=== PATIENT | male | born 1940 | race Caucasian/White ===

== ENCOUNTER 2017-11-15 08:14 | Inpatient (IN) | payer MEDICARE, OTHER ==
[2017-11-15] MEDS ORDERED: Sodium Chloride 0.9% 1,000 ML IV ONE (08:31)
[2017-11-15] MEDS ORDERED: Sodium Chloride 0.9% 2.5 ML Syringe FLUSH PRN ×3 (08:31→14:11)
[2017-11-15] MEDS ORDERED: Sodium Chloride 0.9% 10 ML Syringe FLUSH PRN ×2 (08:31→14:11)
--- NOTE | 2017-11-15 08:31 | EDM.PDOC ---
ED HPI GENERAL MEDICAL PROBLEM - General Stated Complaint: AMBULANCE Time Seen by Provider: 11/15/17 08:20 Source of Information: Reports: Patient History Limitations: Reports: No Limitations - History of Present Illness INITIAL COMMENTS - FREE TEXT/NARRATIVE: HISTORY AND PHYSICAL: History of present illness: [77-year-old male presenting to emergency department by EMS for shortness of breath with past medical history of hypertension, GI bleed, PE on Coumadin, and type 2 diabetes. Patient states that he began having some shortness of breath approximately 7-10 days ago. He denies any associated chest pain, palpitations, diaphoresis, or nausea and vomiting. He does admit to some lightheadedness when he stands up as well as generalized fatigue. Denies any recent fevers, chills, sore throat, or recent sick contacts. This morning while having a BM he became very lightheaded and short of breath. States that he "almost passed out" but did not lose consciousness. He was able to sit down on the floor and secondary to this called EMS for further evaluation. He does note dark tarry stools starting today. Patient states that he does have a history of GI bleed. He has had upper and lower endoscopy performed here by Dr. Queen some years ago. States that no significant findings were found on this evaluation. Also states that he had a upper and lower endoscopy done in [place] some years ago as well which only revealed a small polyp which was extracted. In addition to his shortness of breath and lightheadedness he is been having some crampy bloating abdominal pain. This is intermittent and mild. Patient does have a history of PE 2 and is on Coumadin. He goes to the [facility] for his primary care and to check his INRs. He denies any recent changes in his diet as well as changes in his INR. He denies any current leg pain or extended time sitting or recent travel. He currently denies any chest pain, palpitations, syncopal episodes, or focal neurologic deficits. EMS reported BP systolic in the high 80's and was given 1 L NS in route to ED. He denies any medical allergies. AIMS65 score: 3 9% risk ] Review of systems: As per history of present illness and below otherwise all systems reviewed and negative. Past medical history: As per history of present illness and as reviewed below otherwise noncontributory. Surgical history: As per history of present illness and as reviewed below otherwise noncontributory. Social history: No reported history of drug or alcohol abuse. Family history: As per history of present illness and as reviewed below otherwise noncontributory. Physical exam: HEENT: Atraumatic, normocephalic, pupils reactive, negative for conjunctival pallor or scleral icterus, mucous membranes moist, throat clear, neck supple, nontender, trachea midline. Lungs: Clear to auscultation, breath sounds equal bilaterally, chest nontender. Heart: S1S2, regular, negative for clicks, rubs, or JVD. Abdomen: Soft, nondistended, nontender. Negative for masses or hepatosplenomegaly. Negative for costovertebral tenderness. Pelvis: Stable nontender. Genitourinary: Dark stool seen at anus. Positive occult blood. Rectal: Deferred. Extremities: Atraumatic, negative for cords or calf pain. Neurovascular unremarkable. Neuro: Awake, alert, oriented. Cranial nerves II through XII unremarkable. Cerebellum unremarkable. Motor and sensory unremarkable throughout. Exam nonfocal. Diagnostics: CBC-Hgb 10.8 CMP-BUN 67 Cr 1.5 Trop-neg D-dimer-neg INR-3.35 EKG-sinus tach 101, RBBB and LAFB no acute ST changes CXR-neg UA-pending Hemoccult: positive for blood [id number] CT abd/pelvis: Cholelithiasis, mild diverticulosis Therapeutics: [1 L IV NS x1, 1 L IV LR x1, 80mg Pantoprazole IV x1] Impression: [Upper GI bleed, shortness of breath, h-pylori positive, anemia] Plan: [CBC showed mild anemia 10.8 however patient most likely was mildly dehydrated which resulted in his acute kidney injury so anemia may be more pronounced than actually labs show. BUN was elevated at 67 with creatinine of 1.5. Hemoccult was positive and there was dark stool noted. AIMS65 score was 3 indicating 9% risk. Patient was positive for helico bactor pylori indicating more evidence for upper GI bleed. We did get a CT of the abdomen and pelvis with contrast that only showed cholelithiasis without cholecystitis as well as mild diverticulosis without evidence of diverticulitis. All information was explained to patient as well as his and they agreed to admission for his suspected upper GI bleed. Hospitalist was called and accepted patient at 11:15.] - Related Data Allergies Allergy/AdvReac Type Severity Reaction Status Date / Time No Known Allergies Allergy Verified 11/15/17 08:21 Home Meds: Home Meds Insulin Glargine,Hum.Rec.Anlog [Lantus Solostar] 16 unit SQ BEDTIME 12/12/14 [ History] Insulin Glargine,Hum.Rec.Anlog [Lantus Solostar] 31 unit SQ ACBRK 12/12/14 [ History] Lisinopril 40 mg PO DAILY 11/15/17 [History] Metoprolol Tartrate 50 mg PO BID 11/15/17 [History] Simvastatin [Zocor] 0.5 tab PO DAILY 11/15/17 [History] Warfarin Sodium [Coumadin] 7.5 mg PO MOTUWEFRSA@1800 11/15/17 [History] Warfarin [Coumadin] 5 mg PO SUTH@1800 11/15/17 [History] amLODIPine Besylate [Amlodipine Besylate] 5 mg PO DAILY 11/15/17 [History] ED ROS GENERAL - Review of Systems Review Of Systems: See Below ED EXAM, GENERAL - Physical Exam Exam: See Below Course - Vital Signs Last Recorded V/S: Last Vital Signs Temp 97.7 F 11/16/17 08:00 Pulse 82 11/16/17 09:11 Resp 16 11/16/17 08:00 BP 116/71 11/16/17 09:12 Pulse Ox 97 11/16/17 08:00 - Orders/Labs/Meds Orders: Active Orders 24 hr Category Date Time Status Admission Status [Patient Status] [ADT] Stat ADT 11/15/17 11:39 Active UA W/MICROSCOPIC [URIN] Stat Lab 11/15/17 09:29 Ordered Medication Orders Albuterol/Ipratropium (Duoneb 3.0-0.5 Mg/3 Ml) 3 ml NEB Q4HRRT PRN PRN Reason: Shortness Of Breath/wheezing Amlodipine Besylate (Norvasc) 5 mg PO DAILY [facility] Last Admin: 11/16/17 09:12 Dose: 5 mg Amoxicillin (Amoxil) 1,000 mg PO Q12HR [facility] Last Admin: 11/16/17 09:11 Dose: 1,000 mg Admin: 11/15/17 21:08 Dose: 1,000 mg Clarithromycin (Biaxin) 500 mg PO BID [facility] Last Admin: 11/16/17 09:11 Dose: 500 mg Admin: 11/15/17 21:10 Dose: 500 mg Lactated Ringer's (Ringers, Lactated) 1,000 mls @ 75 mls/hr IV ASDIRECTED [facility] Last Admin: 11/15/17 23:46 Dose: 75 mls/hr Insulin Glargine (Lantus Solostar) 16 units SUBCUT BEDTIME [facility] Last Admin: 11/15/17 21:25 Dose: 16 units Insulin Glargine (Lantus Solostar) 31 units SUBCUT ACBRK [facility] Last Admin: 11/16/17 06:56 Dose: 31 units Lisinopril (Prinivil) 40 mg PO DAILY [facility] Last Admin: 11/16/17 09:12 Dose: 40 mg Admin: 11/15/17 22:03 Dose: Metoprolol Tartrate (Lopressor) 50 mg PO BID [facility] Last Admin: 11/16/17 09:11 Dose: 50 mg Admin: 11/15/17 21:09 Dose: 50 mg Morphine Sulfate (Morphine) 2 mg IVPUSH Q2H PRN PRN Reason: Pain (severe 7-10) Stop: 11/16/17 14:13 Pantoprazole Sodium (Protonix Iv) 40 mg IVPUSH Q12H [facility] Last Admin: 11/16/17 09:09 Dose: 40 mg Admin: 11/15/17 21:08 Dose: 40 mg Simvastatin (Zocor) 40 mg PO BEDTIME [facility] Sodium Chloride (Saline Flush) 2.5 ml FLUSH ASDIRECTED PRN PRN Reason: Keep Vein Open Sodium Chloride (Saline Flush) 10 ml FLUSH ASDIRECTED PRN PRN Reason: Keep Vein Open Sodium Chloride (Saline Flush) 2.5 ml FLUSH ASDIRECTED PRN PRN Reason: Keep Vein Open Sodium Chloride (Saline Flush) 10 ml FLUSH ASDIRECTED PRN PRN Reason: Keep Vein Open Sodium Chloride (Saline Flush) 2.5 ml FLUSH ASDIRECTED PRN PRN Reason: Keep Vein Open Sucralfate (Carafate) 1 gm PO Q8H [facility] Last Admin: 11/16/17 09:10 Dose: 1 gm Admin: 11/16/17 01:15 Dose: 1 gm Labs: Laboratory Tests 11/15/17 11/15/17 11/15/17 Range/Units 08:50 08:50 08:50 WBC 7.38 (4.0-11.0) K/uL RBC 3.26 L (4.50-5.90) M/uL Hgb 10.8 L (13.0-17.0) g/dL Hct 32.9 L (38.0-50.0) % MCV 100.9 H (80.0-98.0) fL MCH 33.1 H (27.0-32.0) pg MCHC 32.8 (31.0-37.0) g/dL RDW Std Deviation 53.8 (28.0-62.0) fl RDW Coeff of Kristal 15 (11.0-15.0) % Plt Count 181 (150-400) K/uL MPV 10.40 (7.40-12.00) fL Neut % (Auto) 62.7 (48.0-80.0) % Lymph % (Auto) 29.5 (16.0-40.0) % [place] % (Auto) 6.2 (0.0-15.0) % Eos % (Auto) 0.9 (0.0-7.0) % Baso % (Auto) 0.7 (0.0-1.5) % Neut # (Auto) 4.6 (1.4-5.7) K/uL Lymph # (Auto) 2.2 (0.6-2.4) K/uL [place] # (Auto) 0.5 (0.0-0.8) K/uL Eos # (Auto) 0.1 (0.0-0.7) K/uL Baso # (Auto) 0.1 (0.0-0.1) K/uL Nucleated RBC % 0.0 /100WBC Nucleated RBCs # 0 K/uL INR 3.35 D-Dimer, Quantitative < 0.19 (0.0-0.52) mg/LFEU Sodium 140 (136-148) mmol/L Potassium 4.2 (3.5-5.1) mmol/L Chloride 108 H (98-107) mmol/L Carbon Dioxide 25.7 (21.0-32.0) mmol/L BUN 67 H (7.0-18.0) mg/dL Creatinine 1.5 H (0.8-1.3) mg/dL Est Cr Clr Drug Dosing 47.19 mL/min Estimated GFR (MDRD) 45.3 ml/min Glucose 199 H (74-106) mg/dL Calcium 9.0 (8.5-10.1) mg/dL Total Bilirubin 0.4 (0.2-1.0) mg/dL AST 27 (15-37) IU/L ALT 35 (14-63) IU/L Alkaline Phosphatase 42 L (46-116) U/L Troponin I < 0.050 (0.000-0.056) ng/mL Total Protein 6.2 L (6.4-8.2) g/dL Albumin 2.8 L (3.4-5.0) g/dL Globulin 3.4 (2.0-3.5) g/dL Albumin/Globulin Ratio 0.8 L (1.3-2.8) Urine Color Urine Appearance Urine pH (5.0-8.0) Ur Specific [place] (1.001-1.035) Urine Protein (NEGATIVE) mg/dL Urine Glucose (UA) (NEGATIVE) mg/dL Urine Ketones (NEGATIVE) mg/dL Urine Occult Blood (NEGATIVE) Urine Nitrite (NEGATIVE) Urine Bilirubin (NEGATIVE) Urine Urobilinogen (<2.0) EU/dL Ur Leukocyte Esterase (NEGATIVE) Urine RBC (0-2/HPF) Urine WBC (0-5/HPF) Ur Epithelial Cells (NONE-FEW) Urine Bacteria (NEGATIVE) H. pylori IgG Antibody (NEG) 11/15/17 11/15/17 Range/Units 08:50 09:29 WBC (4.0-11.0) K/uL RBC (4.50-5.90) M/uL Hgb (13.0-17.0) g/dL Hct (38.0-50.0) % MCV (80.0-98.0) fL MCH (27.0-32.0) pg MCHC (31.0-37.0) g/dL RDW Std Deviation (28.0-62.0) fl RDW Coeff of Kristal (11.0-15.0) % Plt Count (150-400) K/uL MPV (7.40-12.00) fL Neut % (Auto) (48.0-80.0) % Lymph % (Auto) (16.0-40.0) % [place] % (Auto) (0.0-15.0) % Eos % (Auto) (0.0-7.0) % Baso % (Auto) (0.0-1.5) % Neut # (Auto) (1.4-5.7) K/uL Lymph # (Auto) (0.6-2.4) K/uL [place] # (Auto) (0.0-0.8) K/uL Eos # (Auto) (0.0-0.7) K/uL Baso # (Auto) (0.0-0.1) K/uL Nucleated RBC % /100WBC Nucleated RBCs # K/uL INR D-Dimer, Quantitative (0.0-0.52) mg/LFEU Sodium (136-148) mmol/L Potassium (3.5-5.1) mmol/L Chloride (98-107) mmol/L Carbon Dioxide (21.0-32.0) mmol/L BUN (7.0-18.0) mg/dL Creatinine (0.8-1.3) mg/dL Est Cr Clr Drug Dosing mL/min Estimated GFR (MDRD) ml/min Glucose (74-106) mg/dL Calcium (8.5-10.1) mg/dL Total Bilirubin (0.2-1.0) mg/dL AST (15-37) IU/L ALT (14-63) IU/L Alkaline Phosphatase (46-116) U/L Troponin I (0.000-0.056) ng/mL Total Protein (6.4-8.2) g/dL Albumin (3.4-5.0) g/dL Globulin (2.0-3.5) g/dL Albumin/Globulin Ratio (1.3-2.8) Urine Color YELLOW Urine Appearance CLEAR Urine pH 5.5 (5.0-8.0) Ur Specific [place] 1.020 (1.001-1.035) Urine Protein NEGATIVE (NEGATIVE) mg/dL Urine Glucose (UA) NEGATIVE (NEGATIVE) mg/dL Urine Ketones 15 H (NEGATIVE) mg/dL Urine Occult Blood SMALL H (NEGATIVE) Urine Nitrite NEGATIVE (NEGATIVE) Urine Bilirubin NEGATIVE (NEGATIVE) Urine Urobilinogen 0.2 (<2.0) EU/dL Ur Leukocyte Esterase SMALL (NEGATIVE) Urine RBC 2-4 (0-2/HPF) Urine WBC 8-10 (0-5/HPF) Ur Epithelial Cells FEW (NONE-FEW) Urine Bacteria FEW (NEGATIVE) H. pylori IgG Antibody POSITIVE H (NEG) Meds: Medications Generic Name Dose Route Start Last Admin Trade Name Freq PRN Reason Stop Dose Admin Albuterol/Ipratropium 3 ml 11/15/17 14:11 Duoneb 3.0-0.5 Mg/3 Ml NEB Q4HRRT PRN Shortness Of Breath/wheezing Amlodipine Besylate 5 mg 11/16/17 09:00 11/16/17 09:12 Norvasc PO 5 mg DAILY [facility] Administration Amoxicillin 1,000 mg 11/15/17 21:00 11/16/17 09:11 Amoxil PO 1,000 mg Q12HR [facility] Administration Clarithromycin 500 mg 11/15/17 21:00 11/16/17 09:11 Biaxin PO 500 mg BID [facility] Administration Lactated Ringer's 1,000 mls @ 75 mls/hr 11/15/17 18:45 11/15/17 23:46 Ringers, Lactated IV 75 mls/hr ASDIRECTED [facility] Administration Insulin Glargine 16 units 11/15/17 21:00 11/15/17 21:25 Lantus Solostar SUBCUT 16 units BEDTIME [facility] Administration Insulin Glargine 31 units 11/16/17 07:30 11/16/17 06:56 Lantus Solostar SUBCUT 31 units ACBRK [facility] Administration Lisinopril 40 mg 11/15/17 18:45 11/16/17 09:12 Prinivil PO 40 mg DAILY [facility] Administration Metoprolol Tartrate 50 mg 11/15/17 21:00 11/16/17 09:11 Lopressor PO 50 mg BID [facility] Administration Morphine Sulfate 2 mg 11/15/17 14:11 Morphine IVPUSH 11/16/17 14:13 Q2H PRN Pain (severe 7-10) Pantoprazole Sodium 40 mg 11/15/17 21:00 11/16/17 09:09 Protonix Iv IVPUSH 40 mg Q12H [facility] Administration Simvastatin 40 mg 11/16/17 21:00 Zocor PO BEDTIME [facility] Sodium Chloride 2.5 ml 11/15/17 08:31 Saline Flush FLUSH ASDIRECTED PRN Keep Vein Open Sodium Chloride 10 ml 11/15/17 08:31 Saline Flush FLUSH ASDIRECTED PRN Keep Vein Open Sodium Chloride 2.5 ml 11/15/17 08:31 Saline Flush FLUSH ASDIRECTED PRN Keep Vein Open Sodium Chloride 10 ml 11/15/17 14:11 Saline Flush FLUSH ASDIRECTED PRN Keep Vein Open Sodium Chloride 2.5 ml 11/15/17 14:11 Saline Flush FLUSH ASDIRECTED PRN Keep Vein Open Sucralfate 1 gm 11/16/17 00:30 11/16/17 09:10 Carafate PO 1 gm Q8H [facility] Administration Discontinued Medications Generic Name Dose Route Start Last Admin Trade Name Freq PRN Reason Stop Dose Admin Sodium Chloride 1,000 mls @ 999 mls/hr 11/15/17 08:31 11/15/17 09:29 Normal Saline IV 11/15/17 09:31 999 mls/hr .Bolus ONE Infusion Pantoprazole Sodium 80 mg/ 20 mls @ 80 mls/hr 11/15/17 08:50 11/15/17 09:08 Sodium Chloride IV 11/15/17 09:04 80 mls/hr ONETIME ONE Administration Lactated Ringer's 1,000 mls @ 125 mls/hr 11/15/17 10:15 11/15/17 10:46 Ringers, Lactated IV 125 mls/hr .BOLUS [facility] Administration Insulin Aspart 0 unit 11/15/17 17:00 11/15/17 17:08 Novolog SUBCUT Not Given Q6H [facility] Protocol Iopamidol 80 ml 11/15/17 10:34 11/15/17 10:35 Isovue Multipack-370 (76%) IVPUSH 11/15/17 10:35 80 ml ONETIME STA Administration Departure - Departure Time of Disposition: 10:12 (admitted to inpatient 11/15/17) Disposition: Admitted As Inpatient 65 Condition: Fair Clinical Impression: GI bleed Qualifiers: GI bleed type/associated pathology: gastric ulcer Qualified Code(s): K25.4 - Chronic or unspecified gastric ulcer with hemorrhage - Discharge Information - My Orders Last 24 Hours: My Active Orders 11/15/17 09:29 UA W/MICROSCOPIC [URIN] Stat 11/15/17 11:39 Admission Status [Patient Status] [ADT] Stat - Assessment/Plan Last 24 Hours: My Active Orders 11/15/17 09:29 UA W/MICROSCOPIC [URIN] Stat 11/15/17 11:39 Admission Status [Patient Status] [ADT] Stat
[2017-11-15] MEDS ORDERED: Pantoprazole 80 MG in Sodium Chloride 0.9% 20 ML IV ONE (08:50)
--- NOTE | 2017-11-15 09:18 | CR ---
EXAMINATION: Portable chest radiograph. HISTORY: Shortness of breath. FINDINGS: The trachea is midline. The cardiomediastinal silhouette is within normal limits. No pulmonary infilt rates, effusions or pneumothorax. There is elevation of the right hemidiaphragm. Osseous structures appear unremarkable. IMPRESSION: No acute cardiopulmonary process.
[2017-11-15 09:21] LABS: CHLORIDE,CL 108 mmol/L (98-107); SODIUM,NA 140 mmol/L (136-148)
[2017-11-15] MEDS ORDERED: Lactated Ringers 1,000 ML IV SCH ×2 (10:15→18:45)
[2017-11-15] MEDS ORDERED: Iopamidol 755 MG/ML 500 ML Multipack Bottle IVPUSH STA (10:34)
--- NOTE | 2017-11-15 10:57 | CT ---
CT of the abdomen and pelvis with contrast. HISTORY: Pain TECHNIQUE: Axial CT images were obtained of the abdomen and pelvis following administration of 80 mL of Isovue-370 in the left wrist without complication. Coronal and sagittal reconstructions obtained. FINDINGS: The lung bases are clear, no pleural effusion. Coronary artery calcifications are noted. Cholelithiasis is noted. The liver appears grossly unremarkable. The spleen, adrenal glands, pancreas appear normal. There is no bulky retroperitoneal lymphadenopathy or abdominal ascites. The kidneys enhance and function symmetrically without evidence of obstructive uropathy. The large and small bowel are normal in caliber without evidence of obstruction. No focal pericolonic inflammation or stranding. Mild diverticulosis without evidence of diverticulitis. Appendectomy. The urinary bladder is normal. No bulky pelvic lymphadenopathy or free pelvic fluid. No suspicious osseous abnormalities identified. IMPRESSION: 1. Cholelithiasis without evidence of cholecystitis. 2. Mild diverticulosis without evidence of diverticulitis. 3. Coronary artery calcifications noted.
[2017-11-15] MEDS ORDERED: Albuterol/Ipratropium 3.0-0.5 MG/3 ML Neb Soln NEB PRN (14:11)
[2017-11-15] MEDS ORDERED: Morphine 4 MG/ML Syringe IVPUSH PRN (14:11)
--- NOTE | 2017-11-15 15:08 | PCM.SN ---
- Free Text/Narrative Note: pt seen, chart reviewed; gib, likely upper; initiate gib protocol, 2 large bore iv access, 18+gauge, avoid anticoag, correct coagulopathy as you are doing , transfuse h/h above 10; strict i/o; wt pt now and every morning; ok to have clear liquid diet for now; will follow pt with you; dictation [id number]
[2017-11-15] MEDS ORDERED: Insulin Aspart 100 Units/ML 3 ML Pen SUBCUT SCH (17:00)
[2017-11-15] MEDS: Pantoprazole 40 MG Vial IVPUSH SCH (21:08)
[2017-11-15] MEDS: Amoxicillin 500 MG Cap PO SCH (21:08)
[2017-11-15] MEDS: Metoprolol Tartrate 50 MG Tab PO SCH (21:09)
[2017-11-15] MEDS: Insulin Glargine,Human Rec. Analog 100 Units/ML 3 ML Pen SUBCUT SCH (21:25)
[2017-11-15] MEDS: Lisinopril 10 MG Tab PO SCH (22:03)
--- NOTE | 2017-11-15 22:37 | PCM.HP ---
H&P History of Present Illness - General Date of Service: 11/15/17 Admit Problem/Dx: Admission Diagnosis/Problem Admission Diagnosis/Problem GI bleed not requiring more than 4 units of blood in 24 hours, ICU, or surgery black tarry stool , lightheadedness , hypotension Source of Information: Patient History Limitations: Reports: No Limitations - History of Present Illness Initial Comments - Free Text/Narative: Patient 77 y old man with past medical history of upper Gi bleed presented to hospital today via EMS after he had a black tarry stool in the morning followed by lightheadedness , patient had to lie down. He is on chronic anticoagulation with Coumadin and INR today was 3.35. He has history of recurrent PE and states he was feeling tired and had SOB for the past 2 weeks ,also states he had constipation for 1 week and took laxatives and had a dark tarry stool today . He denies abdominal pain but complained of feeling very bloated Had 2 other previous dark tarry stools for which he was hospitalized and was scoped without any significative findings other than a colon polyp. At admission his BUn was 65, creatinine 1.6, his last creatinine available to compare this labs was done in 2014 and was 1.1 Onset of Symptoms: Reports: Today, Sudden Duration of Symptoms: Reports: Hour(s): Location: Reports: Abdomen - Related Data Allergies/Adverse Reactions: Allergies Allergy/AdvReac Type Severity Reaction Status Date / Time No Known Allergies Allergy Verified 11/15/17 08:21 Home Medications: Home Meds Insulin Glargine,Hum.Rec.Anlog [Lantus Solostar] 16 unit SQ BEDTIME 12/12/14 [ History] Insulin Glargine,Hum.Rec.Anlog [Lantus Solostar] 31 unit SQ ACBRK 12/12/14 [ History] Lisinopril 40 mg PO DAILY 11/15/17 [History] Metoprolol Tartrate 50 mg PO BID 11/15/17 [History] Simvastatin [Zocor] 0.5 tab PO DAILY 11/15/17 [History] Warfarin Sodium [Coumadin] 7.5 mg PO MOTUWEFRSA@1800 11/15/17 [History] Warfarin [Coumadin] 5 mg PO SUTH@1800 11/15/17 [History] amLODIPine Besylate [Amlodipine Besylate] 5 mg PO DAILY 11/15/17 [History] Past Medical History HEENT History: Reports: Cataract, Hard of Hearing Cardiovascular History: Reports: Hypertension, Stents Respiratory History: Reports: PE Gastrointestinal History: Reports: GERD, GI Bleed Genitourinary History: Reports: BPH Musculoskeletal History: Reports: Arthritis, Back Pain, Chronic Endocrine/Metabolic History: Reports: Diabetes, Type II Hematologic History: Reports: Anemia - Infectious Disease History Infectious Disease History: Reports: Chicken Pox, Measles, Mumps - Past Surgical History HEENT Surgical History: Reports: Cataract Surgery, Tonsillectomy Cardiovascular Surgical History: Reports: Coronary Artery Stent Respiratory Surgical History: Reports: None GI Surgical History: Reports: None Male Surgical History: Reports: None Endocrine Surgical History: Reports: None Musculoskeletal Surgical History: Reports: None Social & Family History - Family History Family Medical History: Noncontributory - Tobacco Use Smoking Status *Q: Former Smoker Used Tobacco, but Quit: Yes Month/Year Tobacco Last Used: 30 yrs ago Second Hand Smoke Exposure: No - Caffeine Use Caffeine Use: Reports: Coffee - Recreational Drug Use Recreational Drug Use: No H&P Review of Systems - Review of Systems: Review Of Systems: See Below General: Reports: Weakness, Fatigue HEENT: Reports: No Symptoms Pulmonary: Reports: No Symptoms Cardiovascular: Reports: Lightheadedness Gastrointestinal: Reports: Black Stool, Constipation, Flatus Genitourinary: Reports: No Symptoms Musculoskeletal: Reports: No Symptoms Skin: Reports: No Symptoms Psychiatric: Reports: No Symptoms Neurological: Reports: No Symptoms Hematologic/Lymphatic: Reports: No Symptoms Immunologic: Reports: No Symptoms Exam - Exam Exam: See Below - Vital Signs Vital Signs: Last Vital Signs Temp 96.8 F 11/15/17 19:28 Pulse 94 11/15/17 21:09 Resp 20 11/15/17 19:28 BP 124/64 11/15/17 21:09 Pulse Ox 95 11/15/17 18:54 Weight: 281 lb 1.43 oz - Exam Quality Assessment: Supplemental Oxygen General: Alert, Oriented HEENT: Conjunctiva Clear Neck: Supple, Trachea Midline, Full Range of Motion Lungs: Clear to Auscultation, Normal Respiratory Effort Cardiovascular: Regular Rate, Regular Rhythm, Normal S1, Normal S2 GI/Abdominal Exam: Normal Bowel Sounds, Soft, Non-Tender, No Organomegaly Back Exam: Normal Inspection Extremities: Normal Inspection, Normal Range of Motion, Non-Tender, No Pedal Edema Skin: Warm, Dry, Intact Neurological: Cranial Nerves Intact Neuro Extensive - Mental Status: Alert, Oriented x3 Neuro Extensive - Motor, Sensory, Reflexes: CN II-XII Intact Psychiatric: Alert - Patient Data Lab Results Last 24 hrs: Laboratory Results - last 24 hr 11/15/17 11/15/17 11/15/17 Range/Units 08:50 08:50 08:50 WBC 7.38 (4.0-11.0) K/uL RBC 3.26 L (4.50-5.90) M/uL Hgb 10.8 L (13.0-17.0) g/dL Hct 32.9 L (38.0-50.0) % MCV 100.9 H (80.0-98.0) fL MCH 33.1 H (27.0-32.0) pg MCHC 32.8 (31.0-37.0) g/dL RDW Std Deviation 53.8 (28.0-62.0) fl RDW Coeff of Kristal 15 (11.0-15.0) % Plt Count 181 (150-400) K/uL MPV 10.40 (7.40-12.00) fL Neut % (Auto) 62.7 (48.0-80.0) % Lymph % (Auto) 29.5 (16.0-40.0) % [place] % (Auto) 6.2 (0.0-15.0) % Eos % (Auto) 0.9 (0.0-7.0) % Baso % (Auto) 0.7 (0.0-1.5) % Neut # (Auto) 4.6 (1.4-5.7) K/uL Lymph # (Auto) 2.2 (0.6-2.4) K/uL [place] # (Auto) 0.5 (0.0-0.8) K/uL Eos # (Auto) 0.1 (0.0-0.7) K/uL Baso # (Auto) 0.1 (0.0-0.1) K/uL Nucleated RBC % 0.0 /100WBC Nucleated RBCs # 0 K/uL INR 3.35 APTT (18.6-31.3) SEC D-Dimer, Quantitative < 0.19 (0.0-0.52) mg/LFEU Sodium 140 (136-148) mmol/L Potassium 4.2 (3.5-5.1) mmol/L Chloride 108 H (98-107) mmol/L Carbon Dioxide 25.7 (21.0-32.0) mmol/L BUN 67 H (7.0-18.0) mg/dL Creatinine 1.5 H (0.8-1.3) mg/dL Est Cr Clr Drug Dosing 47.19 mL/min Estimated GFR (MDRD) 45.3 ml/min Glucose 199 H (74-106) mg/dL POC Glucose (60-110) mg/dL Calcium 9.0 (8.5-10.1) mg/dL Total Bilirubin 0.4 (0.2-1.0) mg/dL AST 27 (15-37) IU/L ALT 35 (14-63) IU/L Alkaline Phosphatase 42 L (46-116) U/L Troponin I < 0.050 (0.000-0.056) ng/mL Total Protein 6.2 L (6.4-8.2) g/dL Albumin 2.8 L (3.4-5.0) g/dL Globulin 3.4 (2.0-3.5) g/dL Albumin/Globulin Ratio 0.8 L (1.3-2.8) Urine Color Urine Appearance Urine pH (5.0-8.0) Ur Specific [place] (1.001-1.035) Urine Protein (NEGATIVE) mg/dL Urine Glucose (UA) (NEGATIVE) mg/dL Urine Ketones (NEGATIVE) mg/dL Urine Occult Blood (NEGATIVE) Urine Nitrite (NEGATIVE) Urine Bilirubin (NEGATIVE) Urine Urobilinogen (<2.0) EU/dL Ur Leukocyte Esterase (NEGATIVE) Urine RBC (0-2/HPF) Urine WBC (0-5/HPF) Ur Epithelial Cells (NONE-FEW) Urine Bacteria (NEGATIVE) H. pylori IgG Antibody (NEG) Blood Type Antibody Screen Crossmatch 11/15/17 11/15/17 11/15/17 Range/Units 08:50 09:29 14:36 WBC 8.02 (4.0-11.0) K/uL RBC 3.21 L (4.50-5.90) M/uL Hgb 10.5 L (13.0-17.0) g/dL Hct 32.1 L (38.0-50.0) % MCV 100.0 H (80.0-98.0) fL MCH 32.7 H (27.0-32.0) pg MCHC 32.7 (31.0-37.0) g/dL RDW Std Deviation 54.0 (28.0-62.0) fl RDW Coeff of Kristal 15 (11.0-15.0) % Plt Count 179 (150-400) K/uL MPV 10.00 (7.40-12.00) fL Neut % (Auto) 67.4 (48.0-80.0) % Lymph % (Auto) 24.9 (16.0-40.0) % [place] % (Auto) 7.2 (0.0-15.0) % Eos % (Auto) 0.1 (0.0-7.0) % Baso % (Auto) 0.4 (0.0-1.5) % Neut # (Auto) 5.4 (1.4-5.7) K/uL Lymph # (Auto) 2.0 (0.6-2.4) K/uL [place] # (Auto) 0.6 (0.0-0.8) K/uL Eos # (Auto) 0.0 (0.0-0.7) K/uL Baso # (Auto) 0.0 (0.0-0.1) K/uL Nucleated RBC % 0.0 /100WBC Nucleated RBCs # 0 K/uL INR APTT (18.6-31.3) SEC D-Dimer, Quantitative (0.0-0.52) mg/LFEU Sodium (136-148) mmol/L Potassium (3.5-5.1) mmol/L Chloride (98-107) mmol/L Carbon Dioxide (21.0-32.0) mmol/L BUN (7.0-18.0) mg/dL Creatinine (0.8-1.3) mg/dL Est Cr Clr Drug Dosing mL/min Estimated GFR (MDRD) ml/min Glucose (74-106) mg/dL POC Glucose (60-110) mg/dL Calcium (8.5-10.1) mg/dL Total Bilirubin (0.2-1.0) mg/dL AST (15-37) IU/L ALT (14-63) IU/L Alkaline Phosphatase (46-116) U/L Troponin I (0.000-0.056) ng/mL Total Protein (6.4-8.2) g/dL Albumin (3.4-5.0) g/dL Globulin (2.0-3.5) g/dL Albumin/Globulin Ratio (1.3-2.8) Urine Color YELLOW Urine Appearance CLEAR Urine pH 5.5 (5.0-8.0) Ur Specific [place] 1.020 (1.001-1.035) Urine Protein NEGATIVE (NEGATIVE) mg/dL Urine Glucose (UA) NEGATIVE (NEGATIVE) mg/dL Urine Ketones 15 H (NEGATIVE) mg/dL Urine Occult Blood SMALL H (NEGATIVE) Urine Nitrite NEGATIVE (NEGATIVE) Urine Bilirubin NEGATIVE (NEGATIVE) Urine Urobilinogen 0.2 (<2.0) EU/dL Ur Leukocyte Esterase SMALL (NEGATIVE) Urine RBC 2-4 (0-2/HPF) Urine WBC 8-10 (0-5/HPF) Ur Epithelial Cells FEW (NONE-FEW) Urine Bacteria FEW (NEGATIVE) H. pylori IgG Antibody POSITIVE H (NEG) Blood Type Antibody Screen Crossmatch 11/15/17 11/15/17 11/15/17 Range/Units 14:50 15:07 17:07 WBC (4.0-11.0) K/uL RBC (4.50-5.90) M/uL Hgb (13.0-17.0) g/dL Hct (38.0-50.0) % MCV (80.0-98.0) fL MCH (27.0-32.0) pg MCHC (31.0-37.0) g/dL RDW Std Deviation (28.0-62.0) fl RDW Coeff of Kristal (11.0-15.0) % Plt Count (150-400) K/uL MPV (7.40-12.00) fL Neut % (Auto) (48.0-80.0) % Lymph % (Auto) (16.0-40.0) % [place] % (Auto) (0.0-15.0) % Eos % (Auto) (0.0-7.0) % Baso % (Auto) (0.0-1.5) % Neut # (Auto) (1.4-5.7) K/uL Lymph # (Auto) (0.6-2.4) K/uL [place] # (Auto) (0.0-0.8) K/uL Eos # (Auto) (0.0-0.7) K/uL Baso # (Auto) (0.0-0.1) K/uL Nucleated RBC % /100WBC Nucleated RBCs # K/uL INR 3.08 APTT 33.8 H (18.6-31.3) SEC D-Dimer, Quantitative (0.0-0.52) mg/LFEU Sodium (136-148) mmol/L Potassium (3.5-5.1) mmol/L Chloride (98-107) mmol/L Carbon Dioxide (21.0-32.0) mmol/L BUN (7.0-18.0) mg/dL Creatinine (0.8-1.3) mg/dL Est Cr Clr Drug Dosing mL/min Estimated GFR (MDRD) ml/min Glucose (74-106) mg/dL POC Glucose 141 H (60-110) mg/dL Calcium (8.5-10.1) mg/dL Total Bilirubin (0.2-1.0) mg/dL AST (15-37) IU/L ALT (14-63) IU/L Alkaline Phosphatase (46-116) U/L Troponin I (0.000-0.056) ng/mL Total Protein (6.4-8.2) g/dL Albumin (3.4-5.0) g/dL Globulin (2.0-3.5) g/dL Albumin/Globulin Ratio (1.3-2.8) Urine Color Urine Appearance Urine pH (5.0-8.0) Ur Specific [place] (1.001-1.035) Urine Protein (NEGATIVE) mg/dL Urine Glucose (UA) (NEGATIVE) mg/dL Urine Ketones (NEGATIVE) mg/dL Urine Occult Blood (NEGATIVE) Urine Nitrite (NEGATIVE) Urine Bilirubin (NEGATIVE) Urine Urobilinogen (<2.0) EU/dL Ur Leukocyte Esterase (NEGATIVE) Urine RBC (0-2/HPF) Urine WBC (0-5/HPF) Ur Epithelial Cells (NONE-FEW) Urine Bacteria (NEGATIVE) H. pylori IgG Antibody (NEG) Blood Type O POSITIVE Antibody Screen NEGATIVE Crossmatch See Detail 11/15/17 Range/Units 21:04 WBC (4.0-11.0) K/uL RBC (4.50-5.90) M/uL Hgb (13.0-17.0) g/dL Hct (38.0-50.0) % MCV (80.0-98.0) fL MCH (27.0-32.0) pg MCHC (31.0-37.0) g/dL RDW Std Deviation (28.0-62.0) fl RDW Coeff of Kristal (11.0-15.0) % Plt Count (150-400) K/uL MPV (7.40-12.00) fL Neut % (Auto) (48.0-80.0) % Lymph % (Auto) (16.0-40.0) % [place] % (Auto) (0.0-15.0) % Eos % (Auto) (0.0-7.0) % Baso % (Auto) (0.0-1.5) % Neut # (Auto) (1.4-5.7) K/uL Lymph # (Auto) (0.6-2.4) K/uL [place] # (Auto) (0.0-0.8) K/uL Eos # (Auto) (0.0-0.7) K/uL Baso # (Auto) (0.0-0.1) K/uL Nucleated RBC % /100WBC Nucleated RBCs # K/uL INR APTT (18.6-31.3) SEC D-Dimer, Quantitative (0.0-0.52) mg/LFEU Sodium (136-148) mmol/L Potassium (3.5-5.1) mmol/L Chloride (98-107) mmol/L Carbon Dioxide (21.0-32.0) mmol/L BUN (7.0-18.0) mg/dL Creatinine (0.8-1.3) mg/dL Est Cr Clr Drug Dosing mL/min Estimated GFR (MDRD) ml/min Glucose (74-106) mg/dL POC Glucose 140 H (60-110) mg/dL Calcium (8.5-10.1) mg/dL Total Bilirubin (0.2-1.0) mg/dL AST (15-37) IU/L ALT (14-63) IU/L Alkaline Phosphatase (46-116) U/L Troponin I (0.000-0.056) ng/mL Total Protein (6.4-8.2) g/dL Albumin (3.4-5.0) g/dL Globulin (2.0-3.5) g/dL Albumin/Globulin Ratio (1.3-2.8) Urine Color Urine Appearance Urine pH (5.0-8.0) Ur Specific [place] (1.001-1.035) Urine Protein (NEGATIVE) mg/dL Urine Glucose (UA) (NEGATIVE) mg/dL Urine Ketones (NEGATIVE) mg/dL Urine Occult Blood (NEGATIVE) Urine Nitrite (NEGATIVE) Urine Bilirubin (NEGATIVE) Urine Urobilinogen (<2.0) EU/dL Ur Leukocyte Esterase (NEGATIVE) Urine RBC (0-2/HPF) Urine WBC (0-5/HPF) Ur Epithelial Cells (NONE-FEW) Urine Bacteria (NEGATIVE) H. pylori IgG Antibody (NEG) Blood Type Antibody Screen Crossmatch Result Diagrams: 11/16/17 07:46 11/16/17 07:46 EKG INTERPRETATION EKG Date: 11/15/17 Rhythm: Other (sinus tachycardia) [place]: RAD-Right [place] Deviation P-Wave: Present QRS: RBBB Problem List Initiated/Reviewed/Updated: Yes Orders Last 24hrs: Active Orders 24 hr Category Date Time Status Admission Status [Patient Status] [ADT] Stat ADT 11/15/17 11:39 Active Bedrest Bedside Commode [RC] ASDIRECTED Care 11/15/17 14:11 Active Cardiac Monitoring [RC] . DIRECTED Care 11/15/17 08:31 Active Cardiac Monitoring [RC] Q8H Care 11/15/17 14:12 Active Communication Order [RC] PER UNIT ROUTINE Care 11/15/17 16:55 Active EKG Documentation Completion [RC] STAT Care 11/15/17 08:31 Active Notify Provider Consults [RC] ASDIRECTED Care 11/15/17 14:16 Active Oxygen Therapy [RC] ASDIRECTED Care 11/15/17 08:31 Active Oxygen Therapy [RC] PRN Care 11/15/17 14:11 Active Pulse Oximetry [RC] ASDIRECTED Care 11/15/17 08:31 Active Pulse Oximetry [RC] PRN Care 11/15/17 14:11 Active RT Aerosol Therapy [RC] ASDIRECTED Care 11/15/17 14:14 Active Telemetry Monitoring [Cardiac Monitoring] [RC] . Care 11/15/17 14:38 Active DIRECTED Up With Assistance [RC] ASDIRECTED Care 11/15/17 14:11 Active VTE/DVT Education [RC] PER UNIT ROUTINE Care 11/15/17 14:11 Active Vital Signs [RC] Q4H Care 11/15/17 14:11 Active Consult to Physician [CONS] Stat Cons 11/15/17 14:15 Active Clear Liquid Diet [DIET] Diet 11/15/17 Dinner Active BASIC METABOLIC PANEL,BMP [CHEM] AM Lab 11/16/17 05:11 Ordered BASIC METABOLIC PANEL,BMP [CHEM] AM Lab 11/17/17 05:11 Ordered BASIC METABOLIC PANEL,BMP [CHEM] AM Lab 11/18/17 05:11 Ordered BASIC METABOLIC PANEL,BMP [CHEM] AM Lab 11/19/17 05:11 Ordered CBC WITH AUTO DIFF [HEME] Q8H Lab 11/15/17 22:11 Ordered CBC WITH AUTO DIFF [HEME] Q8H Lab 11/16/17 06:11 Ordered FRESH FROZEN PLASMA [BBK] Routine Lab 11/15/17 15:07 Results INR,PT,PROTHROMBIN TIME [COAG] AM Lab 11/17/17 05:11 Ordered RED BLOOD CELLS LP [BBK] Routine Lab 11/15/17 15:07 Results TYPE AND SCREEN [BBK] Stat Lab 11/15/17 15:07 Results UA W/MICROSCOPIC [URIN] Stat Lab 11/15/17 09:29 Ordered Albuterol/Ipratropium [DuoNeb 3.0-0.5 MG/3 ML] Med 11/15/17 14:11 Active 3 ml NEB Q4HRRT PRN Amoxicillin [Amoxil] Med 11/15/17 21:00 Active 1,000 mg PO Q12HR Clarithromycin [Biaxin] Med 11/15/17 21:00 Active 500 mg PO BID Insulin Glarg,Human.Rec.Analog [LantUS Solostar] Med 11/15/17 21:00 Active 16 units SUBCUT BEDTIME Insulin Glarg,Human.Rec.Analog [LantUS Solostar] Med 11/16/17 07:30 Active 31 units SUBCUT ACBRK Lactated Ringers [Ringers, Lactated] 1,000 ml Med 11/15/17 18:45 Active IV ASDIRECTED Lisinopril [Prinivil] Med 11/15/17 18:45 Active 40 mg PO DAILY Metoprolol Tartrate [Lopressor] Med 11/15/17 21:00 Active 50 mg PO BID Morphine Med 11/15/17 14:11 Active 2 mg IVPUSH Q2H PRN Pantoprazole [ProTONIX IV] Med 11/15/17 21:00 Active 40 mg IVPUSH Q12H Simvastatin [Zocor] Med 11/16/17 21:00 Active 40 mg PO BEDTIME Sodium Chloride 0.9% [Saline Flush] Med 11/15/17 08:31 Active 10 ml FLUSH ASDIRECTED PRN Sodium Chloride 0.9% [Saline Flush] Med 11/15/17 14:11 Active 10 ml FLUSH ASDIRECTED PRN Sodium Chloride 0.9% [Saline Flush] Med 11/15/17 08:31 Active 2.5 ml FLUSH ASDIRECTED PRN Sodium Chloride 0.9% [Saline Flush] Med 11/15/17 08:31 Active 2.5 ml FLUSH ASDIRECTED PRN Sodium Chloride 0.9% [Saline Flush] Med 11/15/17 14:11 Active 2.5 ml FLUSH ASDIRECTED PRN amLODIPine [Norvasc] Med 11/16/17 09:00 Active 5 mg PO DAILY Peripheral IV Insertion Adult [OM.PC] Routine Ot 11/15/17 14:11 Ordered Saline Lock Insert [OM.PC] Routine Ot 11/15/17 14:11 Ordered Saline Lock Insert [OM.PC] Stat Ot 11/15/17 08:31 Ordered Sequential Compression Device [OM.PC] Per Unit Routine Ot 11/15/17 14:12 Ordered Transfuse Fresh Frozen Plasma [COMM] Stat Ot 11/15/17 14:10 Ordered Transfuse PRBC [Transfuse Red Blood Cells] [COMM] Ot 11/15/17 14:08 Ordered Routine Resuscitation Status Routine Resus Stat 11/15/17 14:11 Ordered Medication Orders Albuterol/Ipratropium (Duoneb 3.0-0.5 Mg/3 Ml) 3 ml NEB Q4HRRT PRN PRN Reason: Shortness Of Breath/wheezing Amlodipine Besylate (Norvasc) 5 mg PO DAILY ON LICENSE OF [facility] Amoxicillin (Amoxil) 1,000 mg PO Q12HR ON LICENSE OF [facility] Last Admin: 11/15/17 21:08 Dose: 1,000 mg Clarithromycin (Biaxin) 500 mg PO BID ON LICENSE OF [facility] Last Admin: 11/15/17 21:10 Dose: 500 mg Lactated Ringer's (Ringers, Lactated) 1,000 mls @ 75 mls/hr IV ASDIRECTED ON LICENSE OF [facility] Insulin Glargine (Lantus Solostar) 16 units SUBCUT BEDTIME ON LICENSE OF [facility] Last Admin: 11/15/17 21:25 Dose: 16 units Insulin Glargine (Lantus Solostar) 31 units SUBCUT ACBRK ON LICENSE OF [facility] Lisinopril (Prinivil) 40 mg PO DAILY ON LICENSE OF [facility] Last Admin: 11/15/17 22:03 Dose: Metoprolol Tartrate (Lopressor) 50 mg PO BID ON LICENSE OF [facility] Last Admin: 11/15/17 21:09 Dose: 50 mg Morphine Sulfate (Morphine) 2 mg IVPUSH Q2H PRN PRN Reason: Pain (severe 7-10) Stop: 11/16/17 14:13 Pantoprazole Sodium (Protonix Iv) 40 mg IVPUSH Q12H ON LICENSE OF [facility] Last Admin: 11/15/17 21:08 Dose: 40 mg Simvastatin (Zocor) 40 mg PO BEDTIME ON LICENSE OF [facility] Sodium Chloride (Saline Flush) 2.5 ml FLUSH ASDIRECTED PRN PRN Reason: Keep Vein Open Sodium Chloride (Saline Flush) 10 ml FLUSH ASDIRECTED PRN PRN Reason: Keep Vein Open Sodium Chloride (Saline Flush) 2.5 ml FLUSH ASDIRECTED PRN PRN Reason: Keep Vein Open Sodium Chloride (Saline Flush) 10 ml FLUSH ASDIRECTED PRN PRN Reason: Keep Vein Open Sodium Chloride (Saline Flush) 2.5 ml FLUSH ASDIRECTED PRN PRN Reason: Keep Vein Open Assessment and plan Upper Gi bleed- will admit patient to telemetry , will monitor Hb/Ht q 6 h , will hold Coumadin and will reverse INR by giving patient 2 units of FFP , f/up INR posttransfusion. Will continue with iv fluids and will transfuse patient 2 units of PRBC if Hb less than 8 or if patient is symptomatic( lightheadedness or has hypotension.Will call surgery consult to evaluate for EGD/colonoscopy. Start patient on Protonix 40 mg iv q 12h and sulcralphate 1 gram qid. Acute kidney injury - will give patient iv fluids , f/up BUN /creatinine. H pylori positive - will start patient on amoxicillin 1 gram po BID for 14 days , clarithromycin 500 mg po BID for 14 days and protonix iv 40 mg q 12h for 14 days.
[2017-11-16] MEDS: Sucralfate Suspension 1 GM/10 ML Cup PO SCH ×3 (01:15→17:16)
[2017-11-16] MEDS: Insulin Glargine,Human Rec. Analog 100 Units/ML 3 ML Pen SUBCUT SCH ×2 (06:56→21:47)
[2017-11-16] MEDS: Pantoprazole 40 MG Vial IVPUSH SCH ×2 (09:09→21:34)
--- NOTE | 2017-11-16 09:10 | CONS ---
DATE OF CONSULTATION: 11/15/2017 DATE OF : 1940 PRIMARY CARE PHYSICIAN: Unknown PCP Consult from the hospitalist, Dr. Nieves. CONCERNING QUESTION: GI bleeding. HISTORY OF PRESENT ILLNESS: The patient is a 77-year-old obese gentleman, known to my service in the past, for another episode of black tarry stool. The patient has PE documented two times and has been on Coumadin 5 two days a week and 7.5 other days. He has been in his usual health, but developed black tarry stool and also fatigued and tired, and checked in the emergency room. INR was noted to be 3.35. The patient is now admitted to medical service for further management. The patient denied bright red blood per rectum and denied hematuria and denied hematemesis. Denied hemoptysis. The patient had many scopes in the last two years, by myself 2 scopes. No bleeding source found. In [place], EGD and colonoscopy a couple of times and only found polyp, no bleeding source. ALLERGIES: Please refer to nursing for details. MEDICATIONS: Please refer to nursing for details. REVIEW OF SYSTEMS: Same as history of present illness. PAST MEDICAL HISTORY: Patient is diabetic. Hypertension and PE. Deny AL and CVA. PAST SURGICAL HISTORY: Multiple scopes and endoscopy study PHYSICAL EXAMINATION: GENERAL: A very pleasant, nice gentleman, in no acute distress, smiled to the doctor and very comfortable and is also hungry. HEENT: Normocephalic, atraumatic. Sclerae anicteric. LUNGS: Clear to auscultation. HEART: Regular rate and rhythm. ABDOMEN: Soft, nondistended. No pulsating tenderness in midline abdominal structure. Nontender. Normal bowel sounds in all 4 quadrants. LABORATORY DATA: Upon consultation, H and H are 10 and 32 and white count is 8 and platelets are 179. INR is 3.35. BUN is 67, creatinine 1.5, glucose 200. H. pylori positive antibody. IMPRESSION: Possible upper gastrointestinal bleeding versus lower gastrointestinal bleeding because of INR of 3.35. Initiate GI bleeding protocol. Two large-bore IV access, 18 gauge and above. Strict in's and out's and measure urine output. Transfuse to above 10 hemoglobin and hematocrit and avoid nonsteroidal as well as any coagulopathy medication. The patient would benefit from a scope in the future. Helicobacter pylori IgG antibody positive, just means the patient had Helicobacter pylori exposure. It is difficult to sort out whether it is acute or chronic. We will follow the patient with you. Thanks for the kind referral for this kind and pleasant patient. WENDY VEGA /[id number]
[2017-11-16] MEDS: Metoprolol Tartrate 50 MG Tab PO SCH ×2 (09:11→21:36)
[2017-11-16] MEDS: Amoxicillin 500 MG Cap PO SCH ×2 (09:11→21:33)
[2017-11-16] MEDS: amLODIPine 5 MG Tab PO SCH (09:12)
[2017-11-16] MEDS: Lisinopril 10 MG Tab PO SCH (09:12)
--- NOTE | 2017-11-16 13:58 | PCM.SURGPN ---
- General Info Date of Service: 11/16/17 Functional Status: Reports: Pain Controlled - Review of Systems General: Reports: No Symptoms Gastrointestinal: Reports: No Symptoms (BM X 2) - Patient Data Vitals - Most Recent: Last Vital Signs Temp 97.7 F 11/16/17 08:00 Pulse 82 11/16/17 09:11 Resp 16 11/16/17 08:00 BP 116/71 11/16/17 09:12 Pulse Ox 97 11/16/17 08:00 Weight - Most Recent: 281 lb 1.43 oz I&O - Last 24 Hours: Intake & Output 11/15/17 11/16/17 11/16/17 22:59 06:59 14:59 Intake Total 912 1485 204 Output Total 300 300 Balance 612 1185 204 Lab Results Last 24 Hrs: Laboratory Results - last 24 hr 11/15/17 11/15/17 11/15/17 Range/Units 14:36 14:50 15:07 WBC 8.02 (4.0-11.0) K/uL RBC 3.21 L (4.50-5.90) M/uL Hgb 10.5 L (13.0-17.0) g/dL Hct 32.1 L (38.0-50.0) % MCV 100.0 H (80.0-98.0) fL MCH 32.7 H (27.0-32.0) pg MCHC 32.7 (31.0-37.0) g/dL RDW Std Deviation 54.0 (28.0-62.0) fl RDW Coeff of Kristal 15 (11.0-15.0) % Plt Count 179 (150-400) K/uL MPV 10.00 (7.40-12.00) fL Neut % (Auto) 67.4 (48.0-80.0) % Lymph % (Auto) 24.9 (16.0-40.0) % [place] % (Auto) 7.2 (0.0-15.0) % Eos % (Auto) 0.1 (0.0-7.0) % Baso % (Auto) 0.4 (0.0-1.5) % Neut # (Auto) 5.4 (1.4-5.7) K/uL Lymph # (Auto) 2.0 (0.6-2.4) K/uL [place] # (Auto) 0.6 (0.0-0.8) K/uL Eos # (Auto) 0.0 (0.0-0.7) K/uL Baso # (Auto) 0.0 (0.0-0.1) K/uL Nucleated RBC % 0.0 /100WBC Nucleated RBCs # 0 K/uL INR 3.08 APTT 33.8 H (18.6-31.3) SEC Sodium (136-148) mmol/L Potassium (3.5-5.1) mmol/L Chloride (98-107) mmol/L Carbon Dioxide (21.0-32.0) mmol/L BUN (7.0-18.0) mg/dL Creatinine (0.8-1.3) mg/dL Est Cr Clr Drug Dosing mL/min Estimated GFR (MDRD) ml/min Glucose (74-106) mg/dL POC Glucose (60-110) mg/dL Calcium (8.5-10.1) mg/dL Blood Type O POSITIVE Antibody Screen NEGATIVE Crossmatch See Detail 11/15/17 11/15/17 11/15/17 Range/Units 17:07 21:04 22:42 WBC 8.22 (4.0-11.0) K/uL RBC 2.80 L (4.50-5.90) M/uL Hgb 9.2 L (13.0-17.0) g/dL Hct 28.1 L (38.0-50.0) % MCV 100.4 H (80.0-98.0) fL MCH 32.9 H (27.0-32.0) pg MCHC 32.7 (31.0-37.0) g/dL RDW Std Deviation 55.0 (28.0-62.0) fl RDW Coeff of Kristal 15 (11.0-15.0) % Plt Count 169 (150-400) K/uL MPV 10.30 (7.40-12.00) fL Neut % (Auto) 67.0 (48.0-80.0) % Lymph % (Auto) 24.1 (16.0-40.0) % [place] % (Auto) 7.4 (0.0-15.0) % Eos % (Auto) 1.0 (0.0-7.0) % Baso % (Auto) 0.5 (0.0-1.5) % Neut # (Auto) 5.5 (1.4-5.7) K/uL Lymph # (Auto) 2.0 (0.6-2.4) K/uL [place] # (Auto) 0.6 (0.0-0.8) K/uL Eos # (Auto) 0.1 (0.0-0.7) K/uL Baso # (Auto) 0.0 (0.0-0.1) K/uL Nucleated RBC % 0.0 /100WBC Nucleated RBCs # 0 K/uL INR APTT (18.6-31.3) SEC Sodium (136-148) mmol/L Potassium (3.5-5.1) mmol/L Chloride (98-107) mmol/L Carbon Dioxide (21.0-32.0) mmol/L BUN (7.0-18.0) mg/dL Creatinine (0.8-1.3) mg/dL Est Cr Clr Drug Dosing mL/min Estimated GFR (MDRD) ml/min Glucose (74-106) mg/dL POC Glucose 141 H 140 H (60-110) mg/dL Calcium (8.5-10.1) mg/dL Blood Type Antibody Screen Crossmatch 11/15/17 11/16/17 11/16/17 Range/Units 22:42 06:03 07:46 WBC (4.0-11.0) K/uL RBC (4.50-5.90) M/uL Hgb (13.0-17.0) g/dL Hct (38.0-50.0) % MCV (80.0-98.0) fL MCH (27.0-32.0) pg MCHC (31.0-37.0) g/dL RDW Std Deviation (28.0-62.0) fl RDW Coeff of Kristal (11.0-15.0) % Plt Count (150-400) K/uL MPV (7.40-12.00) fL Neut % (Auto) (48.0-80.0) % Lymph % (Auto) (16.0-40.0) % [place] % (Auto) (0.0-15.0) % Eos % (Auto) (0.0-7.0) % Baso % (Auto) (0.0-1.5) % Neut # (Auto) (1.4-5.7) K/uL Lymph # (Auto) (0.6-2.4) K/uL [place] # (Auto) (0.0-0.8) K/uL Eos # (Auto) (0.0-0.7) K/uL Baso # (Auto) (0.0-0.1) K/uL Nucleated RBC % /100WBC Nucleated RBCs # K/uL INR 1.87 APTT (18.6-31.3) SEC Sodium 144 (136-148) mmol/L Potassium 3.9 (3.5-5.1) mmol/L Chloride 109 H (98-107) mmol/L Carbon Dioxide 26.6 (21.0-32.0) mmol/L BUN 43 H (7.0-18.0) mg/dL Creatinine 1.6 H (0.8-1.3) mg/dL Est Cr Clr Drug Dosing 40.53 mL/min Estimated GFR (MDRD) 42.0 ml/min Glucose 132 H (74-106) mg/dL POC Glucose 115 H (60-110) mg/dL Calcium 8.6 (8.5-10.1) mg/dL Blood Type Antibody Screen Crossmatch 11/16/17 11/16/17 Range/Units 07:46 11:20 WBC 7.58 (4.0-11.0) K/uL RBC 3.39 L (4.50-5.90) M/uL Hgb 11.0 L (13.0-17.0) g/dL Hct 33.1 L (38.0-50.0) % MCV 97.6 (80.0-98.0) fL MCH 32.4 H (27.0-32.0) pg MCHC 33.2 (31.0-37.0) g/dL RDW Std Deviation 56.8 (28.0-62.0) fl RDW Coeff of Kristal 16 H (11.0-15.0) % Plt Count 157 (150-400) K/uL MPV 10.60 (7.40-12.00) fL Neut % (Auto) 53.8 (48.0-80.0) % Lymph % (Auto) 35.4 (16.0-40.0) % [place] % (Auto) 7.5 (0.0-15.0) % Eos % (Auto) 2.6 (0.0-7.0) % Baso % (Auto) 0.7 (0.0-1.5) % Neut # (Auto) 4.1 (1.4-5.7) K/uL Lymph # (Auto) 2.7 H (0.6-2.4) K/uL [place] # (Auto) 0.6 (0.0-0.8) K/uL Eos # (Auto) 0.2 (0.0-0.7) K/uL Baso # (Auto) 0.1 (0.0-0.1) K/uL Nucleated RBC % 0.0 /100WBC Nucleated RBCs # 0 K/uL INR APTT (18.6-31.3) SEC Sodium (136-148) mmol/L Potassium (3.5-5.1) mmol/L Chloride (98-107) mmol/L Carbon Dioxide (21.0-32.0) mmol/L BUN (7.0-18.0) mg/dL Creatinine (0.8-1.3) mg/dL Est Cr Clr Drug Dosing mL/min Estimated GFR (MDRD) ml/min Glucose (74-106) mg/dL POC Glucose 109 (60-110) mg/dL Calcium (8.5-10.1) mg/dL Blood Type Antibody Screen Crossmatch Med Orders - Current: Current Medications Albuterol/Ipratropium (Duoneb 3.0-0.5 Mg/3 Ml) 3 ml NEB Q4HRRT PRN PRN Reason: Shortness Of Breath/wheezing Amlodipine Besylate (Norvasc) 5 mg PO DAILY [facility] Last Admin: 11/16/17 09:12 Dose: 5 mg Amoxicillin (Amoxil) 1,000 mg PO Q12HR [facility] Last Admin: 11/16/17 09:11 Dose: 1,000 mg Clarithromycin (Biaxin) 500 mg PO BID [facility] Last Admin: 11/16/17 09:11 Dose: 500 mg Lactated Ringer's (Ringers, Lactated) 1,000 mls @ 75 mls/hr IV ASDIRECTED [facility] Last Admin: 11/15/17 23:46 Dose: 75 mls/hr Insulin Glargine (Lantus Solostar) 16 units SUBCUT BEDTIME [facility] Last Admin: 11/15/17 21:25 Dose: 16 units Insulin Glargine (Lantus Solostar) 31 units SUBCUT ACBRK [facility] Last Admin: 11/16/17 06:56 Dose: 31 units Lisinopril (Prinivil) 40 mg PO DAILY [facility] Last Admin: 11/16/17 09:12 Dose: 40 mg Metoprolol Tartrate (Lopressor) 50 mg PO BID [facility] Last Admin: 11/16/17 09:11 Dose: 50 mg Morphine Sulfate (Morphine) 2 mg IVPUSH Q2H PRN PRN Reason: Pain (severe 7-10) Stop: 11/16/17 14:13 Pantoprazole Sodium (Protonix Iv) 40 mg IVPUSH Q12H [facility] Last Admin: 11/16/17 09:09 Dose: 40 mg Simvastatin (Zocor) 40 mg PO BEDTIME [facility] Sodium Chloride (Saline Flush) 2.5 ml FLUSH ASDIRECTED PRN PRN Reason: Keep Vein Open Sodium Chloride (Saline Flush) 10 ml FLUSH ASDIRECTED PRN PRN Reason: Keep Vein Open Sodium Chloride (Saline Flush) 2.5 ml FLUSH ASDIRECTED PRN PRN Reason: Keep Vein Open Sodium Chloride (Saline Flush) 10 ml FLUSH ASDIRECTED PRN PRN Reason: Keep Vein Open Sodium Chloride (Saline Flush) 2.5 ml FLUSH ASDIRECTED PRN PRN Reason: Keep Vein Open Sucralfate (Carafate) 1 gm PO Q8H [facility] Last Admin: 11/16/17 09:10 Dose: 1 gm Discontinued Medications Sodium Chloride (Normal Saline) 1,000 mls @ 999 mls/hr IV .Bolus ONE Stop: 11/15/17 09:31 Last Infusion: 11/15/17 09:29 Dose: 999 mls/hr Pantoprazole Sodium 80 mg/ (Sodium Chloride) 20 mls @ 80 mls/hr IV ONETIME ONE Stop: 11/15/17 09:04 Last Admin: 11/15/17 09:08 Dose: 80 mls/hr Lactated Ringer's (Ringers, Lactated) 1,000 mls @ 125 mls/hr IV .[facility] Last Admin: 11/15/17 10:46 Dose: 125 mls/hr Insulin Aspart (Novolog) 0 unit SUBCUT Q6H [facility]; Protocol Last Admin: 11/15/17 17:08 Dose: Not Given Iopamidol (Isovue Multipack-370 (76%)) 80 ml IVPUSH ONETIME STA Stop: 11/15/17 10:35 Last Admin: 11/15/17 10:35 Dose: 80 ml - Exam General: Alert, Oriented GI/Abdominal Exam: Soft - Problem List Review Problem List Initiated/Reviewed/Updated: Yes - My Orders Last 24 Hours: Active Orders 24 hr Category Date Time Status Bedrest Bedside Commode [RC] ASDIRECTED Care 11/15/17 14:11 Active Cardiac Monitoring [RC] Q8H Care 11/15/17 14:12 Active Communication Order [RC] PER UNIT ROUTINE Care 11/15/17 16:55 Active Notify Provider Consults [RC] ASDIRECTED Care 11/15/17 14:16 Active Oxygen Therapy [RC] PRN Care 11/15/17 14:11 Active Pulse Oximetry [RC] PRN Care 11/15/17 14:11 Active RT Aerosol Therapy [RC] ASDIRECTED Care 11/15/17 14:14 Active Telemetry Monitoring [Cardiac Monitoring] [RC] . Care 11/15/17 14:38 Active DIRECTED Up With Assistance [RC] ASDIRECTED Care 11/15/17 14:11 Active VTE/DVT Education [RC] PER UNIT ROUTINE Care 11/15/17 14:11 Active Vital Signs [RC] Q4H Care 11/15/17 14:11 Active Consult to Physician [CONS] Stat Cons 11/15/17 14:15 Active Clear Liquid Diet [DIET] Diet 11/15/17 Dinner Active BASIC METABOLIC PANEL,BMP [CHEM] AM Lab 11/17/17 05:11 Ordered BASIC METABOLIC PANEL,BMP [CHEM] AM Lab 11/18/17 05:11 Ordered BASIC METABOLIC PANEL,BMP [CHEM] AM Lab 11/19/17 05:11 Ordered INR,PT,PROTHROMBIN TIME [COAG] AM Lab 11/17/17 05:11 Ordered Albuterol/Ipratropium [DuoNeb 3.0-0.5 MG/3 ML] Med 11/15/17 14:11 Active 3 ml NEB Q4HRRT PRN Amoxicillin [Amoxil] Med 11/15/17 21:00 Active 1,000 mg PO Q12HR Clarithromycin [Biaxin] Med 11/15/17 21:00 Active 500 mg PO BID Insulin Glarg,Human.Rec.Analog [LantUS Solostar] Med 11/15/17 21:00 Active 16 units SUBCUT BEDTIME Insulin Glarg,Human.Rec.Analog [LantUS Solostar] Med 11/16/17 07:30 Active 31 units SUBCUT ACBRK Lactated Ringers [Ringers, Lactated] 1,000 ml Med 11/15/17 18:45 Active IV ASDIRECTED Lisinopril [Prinivil] Med 11/15/17 18:45 Active 40 mg PO DAILY Metoprolol Tartrate [Lopressor] Med 11/15/17 21:00 Active 50 mg PO BID Morphine Med 11/15/17 14:11 Active 2 mg IVPUSH Q2H PRN Pantoprazole [ProTONIX IV] Med 11/15/17 21:00 Active 40 mg IVPUSH Q12H Simvastatin [Zocor] Med 11/16/17 21:00 Active 40 mg PO BEDTIME Sodium Chloride 0.9% [Saline Flush] Med 11/15/17 14:11 Active 10 ml FLUSH ASDIRECTED PRN Sodium Chloride 0.9% [Saline Flush] Med 11/15/17 14:11 Active 2.5 ml FLUSH ASDIRECTED PRN Sucralfate [Carafate] Med 11/16/17 00:30 Active 1 gm PO Q8H amLODIPine [Norvasc] Med 11/16/17 09:00 Active 5 mg PO DAILY Peripheral IV Insertion Adult [OM.PC] Routine Ot 11/15/17 14:11 Ordered Saline Lock Insert [OM.PC] Routine Ot 11/15/17 14:11 Ordered Sequential Compression Device [OM.PC] Per Unit Routine Ot 11/15/17 14:12 Ordered Transfuse Fresh Frozen Plasma [COMM] Stat Ot 11/15/17 14:10 Ordered Transfuse PRBC [Transfuse Red Blood Cells] [COMM] Ot 11/15/17 14:08 Ordered Routine Resuscitation Status Routine Resus Stat 11/15/17 14:11 Ordered Medication Orders Albuterol/Ipratropium (Duoneb 3.0-0.5 Mg/3 Ml) 3 ml NEB Q4HRRT PRN PRN Reason: Shortness Of Breath/wheezing Amlodipine Besylate (Norvasc) 5 mg PO DAILY [facility] Last Admin: 11/16/17 09:12 Dose: 5 mg Amoxicillin (Amoxil) 1,000 mg PO Q12HR [facility] Last Admin: 11/16/17 09:11 Dose: 1,000 mg Admin: 11/15/17 21:08 Dose: 1,000 mg Clarithromycin (Biaxin) 500 mg PO BID [facility] Last Admin: 11/16/17 09:11 Dose: 500 mg Admin: 11/15/17 21:10 Dose: 500 mg Lactated Ringer's (Ringers, Lactated) 1,000 mls @ 75 mls/hr IV ASDIRECTED [facility] Last Admin: 11/15/17 23:46 Dose: 75 mls/hr Insulin Glargine (Lantus Solostar) 16 units SUBCUT BEDTIME [facility] Last Admin: 11/15/17 21:25 Dose: 16 units Insulin Glargine (Lantus Solostar) 31 units SUBCUT ACBRK [facility] Last Admin: 11/16/17 06:56 Dose: 31 units Lisinopril (Prinivil) 40 mg PO DAILY [facility] Last Admin: 11/16/17 09:12 Dose: 40 mg Admin: 11/15/17 22:03 Dose: Metoprolol Tartrate (Lopressor) 50 mg PO BID [facility] Last Admin: 11/16/17 09:11 Dose: 50 mg Admin: 11/15/17 21:09 Dose: 50 mg Morphine Sulfate (Morphine) 2 mg IVPUSH Q2H PRN PRN Reason: Pain (severe 7-10) Stop: 11/16/17 14:13 Pantoprazole Sodium (Protonix Iv) 40 mg IVPUSH Q12H [facility] Last Admin: 11/16/17 09:09 Dose: 40 mg Admin: 11/15/17 21:08 Dose: 40 mg Simvastatin (Zocor) 40 mg PO BEDTIME [facility] Sodium Chloride (Saline Flush) 2.5 ml FLUSH ASDIRECTED PRN PRN Reason: Keep Vein Open Sodium Chloride (Saline Flush) 10 ml FLUSH ASDIRECTED PRN PRN Reason: Keep Vein Open Sodium Chloride (Saline Flush) 2.5 ml FLUSH ASDIRECTED PRN PRN Reason: Keep Vein Open Sodium Chloride (Saline Flush) 10 ml FLUSH ASDIRECTED PRN PRN Reason: Keep Vein Open Sodium Chloride (Saline Flush) 2.5 ml FLUSH ASDIRECTED PRN PRN Reason: Keep Vein Open Sucralfate (Carafate) 1 gm PO Q8H [facility] Last Admin: 11/16/17 09:10 Dose: 1 gm Admin: 11/16/17 01:15 Dose: 1 gm - Assessment Assessment (Free Text/Narrative):: rec'd 2 RBC and h/h increase 2 unit, no signs or symptoms of active bleeding; would continue correct coagulopathic and monitor blood work; continue clear liquid diet; - Plan Plan (Free Text/Narrative):: rec'd 2 RBC and h/h increase 2 unit, no signs or symptoms of active bleeding; would continue correct coagulopathic and monitor blood work; continue clear liquid diet;
--- NOTE | 2017-11-16 15:40 | PCM.PN ---
- General Info Date of Service: 11/16/17 Admission Dx/Problem (Free Text): Admission Diagnosis/Problem Admission Diagnosis/Problem GI bleed not requiring more than 4 units of blood in 24 hours, ICU, or surgery black tarry stool , lightheadedness , hypotension Subjective Update: Patient hemoglobin dropped to 9.3 last night and patient felt lightheaded and he was transfused 2 units PRBC. His continued to have black tarry bowel movements until morning but they stopped in the morning. He was seen by surgery , recommended medical management - Review of Systems General: Reports: No Symptoms HEENT: Reports: No Symptoms Pulmonary: Reports: No Symptoms Cardiovascular: Reports: No Symptoms Gastrointestinal: Reports: Melena Genitourinary: Reports: No Symptoms Musculoskeletal: Reports: No Symptoms Skin: Reports: No Symptoms Neurological: Reports: No Symptoms Psychiatric: Reports: No Symptoms - Patient Data Vitals - Most Recent: Last Vital Signs Temp 97.7 F 11/16/17 12:00 Pulse 66 11/16/17 12:00 Resp 16 11/16/17 12:00 BP 115/61 11/16/17 12:00 Pulse Ox 98 11/16/17 12:00 Weight - Most Recent: 281 lb 1.43 oz I&O - Last 24 Hours: Intake & Output 11/16/17 11/16/17 11/16/17 06:59 14:59 22:59 Intake Total 1485 204 Output Total 300 Balance 1185 204 Lab Results Last 24 Hours: Laboratory Results - last 24 hr 11/15/17 11/15/17 11/15/17 Range/Units 15:07 17:07 21:04 WBC (4.0-11.0) K/uL RBC (4.50-5.90) M/uL Hgb (13.0-17.0) g/dL Hct (38.0-50.0) % MCV (80.0-98.0) fL MCH (27.0-32.0) pg MCHC (31.0-37.0) g/dL RDW Std Deviation (28.0-62.0) fl RDW Coeff of Kristal (11.0-15.0) % Plt Count (150-400) K/uL MPV (7.40-12.00) fL Neut % (Auto) (48.0-80.0) % Lymph % (Auto) (16.0-40.0) % [place] % (Auto) (0.0-15.0) % Eos % (Auto) (0.0-7.0) % Baso % (Auto) (0.0-1.5) % Neut # (Auto) (1.4-5.7) K/uL Lymph # (Auto) (0.6-2.4) K/uL [place] # (Auto) (0.0-0.8) K/uL Eos # (Auto) (0.0-0.7) K/uL Baso # (Auto) (0.0-0.1) K/uL Nucleated RBC % /100WBC Nucleated RBCs # K/uL INR Sodium (136-148) mmol/L Potassium (3.5-5.1) mmol/L Chloride (98-107) mmol/L Carbon Dioxide (21.0-32.0) mmol/L BUN (7.0-18.0) mg/dL Creatinine (0.8-1.3) mg/dL Est Cr Clr Drug Dosing mL/min Estimated GFR (MDRD) ml/min Glucose (74-106) mg/dL POC Glucose 141 H 140 H (60-110) mg/dL Calcium (8.5-10.1) mg/dL Blood Type O POSITIVE Antibody Screen NEGATIVE Crossmatch See Detail 11/15/17 11/15/17 11/16/17 Range/Units 22:42 22:42 06:03 WBC 8.22 (4.0-11.0) K/uL RBC 2.80 L (4.50-5.90) M/uL Hgb 9.2 L (13.0-17.0) g/dL Hct 28.1 L (38.0-50.0) % MCV 100.4 H (80.0-98.0) fL MCH 32.9 H (27.0-32.0) pg MCHC 32.7 (31.0-37.0) g/dL RDW Std Deviation 55.0 (28.0-62.0) fl RDW Coeff of Kristal 15 (11.0-15.0) % Plt Count 169 (150-400) K/uL MPV 10.30 (7.40-12.00) fL Neut % (Auto) 67.0 (48.0-80.0) % Lymph % (Auto) 24.1 (16.0-40.0) % [place] % (Auto) 7.4 (0.0-15.0) % Eos % (Auto) 1.0 (0.0-7.0) % Baso % (Auto) 0.5 (0.0-1.5) % Neut # (Auto) 5.5 (1.4-5.7) K/uL Lymph # (Auto) 2.0 (0.6-2.4) K/uL [place] # (Auto) 0.6 (0.0-0.8) K/uL Eos # (Auto) 0.1 (0.0-0.7) K/uL Baso # (Auto) 0.0 (0.0-0.1) K/uL Nucleated RBC % 0.0 /100WBC Nucleated RBCs # 0 K/uL INR 1.87 Sodium (136-148) mmol/L Potassium (3.5-5.1) mmol/L Chloride (98-107) mmol/L Carbon Dioxide (21.0-32.0) mmol/L BUN (7.0-18.0) mg/dL Creatinine (0.8-1.3) mg/dL Est Cr Clr Drug Dosing mL/min Estimated GFR (MDRD) ml/min Glucose (74-106) mg/dL POC Glucose 115 H (60-110) mg/dL Calcium (8.5-10.1) mg/dL Blood Type Antibody Screen Crossmatch 11/16/17 11/16/17 11/16/17 Range/Units 07:46 07:46 11:20 WBC 7.58 (4.0-11.0) K/uL RBC 3.39 L (4.50-5.90) M/uL Hgb 11.0 L (13.0-17.0) g/dL Hct 33.1 L (38.0-50.0) % MCV 97.6 (80.0-98.0) fL MCH 32.4 H (27.0-32.0) pg MCHC 33.2 (31.0-37.0) g/dL RDW Std Deviation 56.8 (28.0-62.0) fl RDW Coeff of Kristal 16 H (11.0-15.0) % Plt Count 157 (150-400) K/uL MPV 10.60 (7.40-12.00) fL Neut % (Auto) 53.8 (48.0-80.0) % Lymph % (Auto) 35.4 (16.0-40.0) % [place] % (Auto) 7.5 (0.0-15.0) % Eos % (Auto) 2.6 (0.0-7.0) % Baso % (Auto) 0.7 (0.0-1.5) % Neut # (Auto) 4.1 (1.4-5.7) K/uL Lymph # (Auto) 2.7 H (0.6-2.4) K/uL [place] # (Auto) 0.6 (0.0-0.8) K/uL Eos # (Auto) 0.2 (0.0-0.7) K/uL Baso # (Auto) 0.1 (0.0-0.1) K/uL Nucleated RBC % 0.0 /100WBC Nucleated RBCs # 0 K/uL INR Sodium 144 (136-148) mmol/L Potassium 3.9 (3.5-5.1) mmol/L Chloride 109 H (98-107) mmol/L Carbon Dioxide 26.6 (21.0-32.0) mmol/L BUN 43 H (7.0-18.0) mg/dL Creatinine 1.6 H (0.8-1.3) mg/dL Est Cr Clr Drug Dosing 40.53 mL/min Estimated GFR (MDRD) 42.0 ml/min Glucose 132 H (74-106) mg/dL POC Glucose 109 (60-110) mg/dL Calcium 8.6 (8.5-10.1) mg/dL Blood Type Antibody Screen Crossmatch Med Orders - Current: Current Medications Albuterol/Ipratropium (Duoneb 3.0-0.5 Mg/3 Ml) 3 ml NEB Q4HRRT PRN PRN Reason: Shortness Of Breath/wheezing Amlodipine Besylate (Norvasc) 5 mg PO DAILY [facility] Last Admin: 11/16/17 09:12 Dose: 5 mg Amoxicillin (Amoxil) 1,000 mg PO Q12HR [facility] Last Admin: 11/16/17 09:11 Dose: 1,000 mg Clarithromycin (Biaxin) 500 mg PO BID [facility] Last Admin: 11/16/17 09:11 Dose: 500 mg Lactated Ringer's (Ringers, Lactated) 1,000 mls @ 75 mls/hr IV ASDIRECTED [facility] Last Admin: 11/15/17 23:46 Dose: 75 mls/hr Insulin Glargine (Lantus Solostar) 16 units SUBCUT BEDTIME [facility] Last Admin: 11/15/17 21:25 Dose: 16 units Insulin Glargine (Lantus Solostar) 31 units SUBCUT ACBRK [facility] Last Admin: 11/16/17 06:56 Dose: 31 units Lisinopril (Prinivil) 40 mg PO DAILY [facility] Last Admin: 11/16/17 09:12 Dose: 40 mg Metoprolol Tartrate (Lopressor) 50 mg PO BID [facility] Last Admin: 11/16/17 09:11 Dose: 50 mg Pantoprazole Sodium (Protonix Iv) 40 mg IVPUSH Q12H [facility] Last Admin: 11/16/17 09:09 Dose: 40 mg Simvastatin (Zocor) 40 mg PO BEDTIME [facility] Sodium Chloride (Saline Flush) 2.5 ml FLUSH ASDIRECTED PRN PRN Reason: Keep Vein Open Sodium Chloride (Saline Flush) 10 ml FLUSH ASDIRECTED PRN PRN Reason: Keep Vein Open Sodium Chloride (Saline Flush) 2.5 ml FLUSH ASDIRECTED PRN PRN Reason: Keep Vein Open Sodium Chloride (Saline Flush) 10 ml FLUSH ASDIRECTED PRN PRN Reason: Keep Vein Open Sodium Chloride (Saline Flush) 2.5 ml FLUSH ASDIRECTED PRN PRN Reason: Keep Vein Open Sucralfate (Carafate) 1 gm PO Q8H [facility] Last Admin: 11/16/17 09:10 Dose: 1 gm Discontinued Medications Sodium Chloride (Normal Saline) 1,000 mls @ 999 mls/hr IV .Bolus ONE Stop: 11/15/17 09:31 Last Infusion: 11/15/17 09:29 Dose: 999 mls/hr Pantoprazole Sodium 80 mg/ (Sodium Chloride) 20 mls @ 80 mls/hr IV ONETIME ONE Stop: 11/15/17 09:04 Last Admin: 11/15/17 09:08 Dose: 80 mls/hr Lactated Ringer's (Ringers, Lactated) 1,000 mls @ 125 mls/hr IV .BOLUS [facility] Last Admin: 11/15/17 10:46 Dose: 125 mls/hr Insulin Aspart (Novolog) 0 unit SUBCUT Q6H [facility]; Protocol Last Admin: 11/15/17 17:08 Dose: Not Given Iopamidol (Isovue Multipack-370 (76%)) 80 ml IVPUSH ONETIME STA Stop: 11/15/17 10:35 Last Admin: 11/15/17 10:35 Dose: 80 ml Morphine Sulfate (Morphine) 2 mg IVPUSH Q2H PRN PRN Reason: Pain (severe 7-10) Stop: 11/16/17 14:13 - Exam Quality Assessment: Supplemental Oxygen General: Alert, Oriented HEENT: Pupils Equal, Pupils Reactive Neck: Supple, Trachea Midline, No JVD, No Thyromegaly Lungs: Clear to Auscultation, Normal Respiratory Effort Cardiovascular: Regular Rate, Regular Rhythm, No Murmurs GI/Abdominal Exam: Normal Bowel Sounds, Non-Tender, No Distention Back Exam: Normal Inspection Extremities: Normal Inspection - Problem List & Annotations (1) Upper GI bleed SNOMED Code(s): 62213518 Code(s): K92.2 - GASTROINTESTINAL HEMORRHAGE, UNSPECIFIED Status: Acute Current Visit: Yes (2) Anemia due to acute blood loss SNOMED Code(s): 114117549 Code(s): D62 - ACUTE POSTHEMORRHAGIC ANEMIA Status: Acute Current Visit: Yes (3) History of pulmonary embolus (PE) SNOMED Code(s): 687702344 Code(s): Z86.711 - PERSONAL HISTORY OF PULMONARY EMBOLISM Status: Acute Current Visit: Yes (4) Diabetes 1.5, managed as type 2 SNOMED Code(s): 157318061 Code(s): E13.9 - OTHER SPECIFIED DIABETES MELLITUS WITHOUT COMPLICATIONS Status: Acute Priority: High Current Visit: No (5) Hypertension SNOMED Code(s): 26630732 Code(s): I10 - ESSENTIAL (PRIMARY) HYPERTENSION Status: Acute Priority: High Current Visit: No - Problem List Review Problem List Initiated/Reviewed/Updated: Yes - My Orders Last 24 Hours: My Active Orders 11/15/17 16:55 Communication Order [RC] PER UNIT ROUTINE 11/15/17 18:45 Lactated Ringers [Ringers, Lactated] 1,000 ml IV ASDIRECTED Lisinopril [Prinivil] 40 mg PO DAILY 11/15/17 21:00 Amoxicillin [Amoxil] 1,000 mg PO Q12HR Clarithromycin [Biaxin] 500 mg PO BID Insulin Glarg,Human.Rec.Analog [LantUS Solostar] 16 units SUBCUT BEDTIME Metoprolol Tartrate [Lopressor] 50 mg PO BID Pantoprazole [ProTONIX IV] 40 mg IVPUSH Q12H 11/15/17 Dinner Clear Liquid Diet [DIET] 11/16/17 00:30 Sucralfate [Carafate] 1 gm PO Q8H 11/16/17 07:30 Insulin Glarg,Human.Rec.Analog [LantUS Solostar] 31 units SUBCUT ACBRK 11/16/17 09:00 amLODIPine [Norvasc] 5 mg PO DAILY 11/16/17 21:00 Simvastatin [Zocor] 40 mg PO BEDTIME 11/17/17 05:11 BASIC METABOLIC PANEL,BMP [CHEM] AM INR,PT,PROTHROMBIN TIME [COAG] AM 11/18/17 05:11 BASIC METABOLIC PANEL,BMP [CHEM] AM 11/19/17 05:11 BASIC METABOLIC PANEL,BMP [CHEM] AM - Assessment Assessment:: Assessment and plan 1)Upper Gi bleed- s/p transfusion of 2 units of blood - will monitor hb/ht, continue Protonix 40 mg iv q 12h , carafate 1 gram po qid, if hemoglobin stable patient can be discharged home with po medication, liquid diet f/up with surgery as outpatient 2) Dm stable - continue current treatment 3) HTn stable - will continue current treatment DVT prof : scd
[2017-11-16] MEDS ORDERED: Simvastatin 40 MG Tab PO SCH (21:00)
[2017-11-17] MEDS: Sucralfate Suspension 1 GM/10 ML Cup PO SCH ×2 (01:19→09:17)
[2017-11-17] MEDS: Insulin Glargine,Human Rec. Analog 100 Units/ML 3 ML Pen SUBCUT SCH (08:08)
[2017-11-17] MEDS: Pantoprazole 40 MG Vial IVPUSH SCH (09:18)
[2017-11-17] MEDS: Metoprolol Tartrate 50 MG Tab PO SCH (09:18)
[2017-11-17] MEDS: amLODIPine 5 MG Tab PO SCH (09:18)
[2017-11-17] MEDS: Lisinopril 10 MG Tab PO SCH (09:18)
[2017-11-17] MEDS: Amoxicillin 500 MG Cap PO SCH (09:18)
--- NOTE | 2017-11-17 13:53 | PCM.DCSUM1 ---
Discharge Summary - Discharge Data Discharge Disposition: Home, Self-Care 01 Condition: Stable - Discharge Diagnosis/Problem(s) (1) Upper GI bleed SNOMED Code(s): 97829423 ICD Code: K92.2 - GASTROINTESTINAL HEMORRHAGE, UNSPECIFIED Status: Acute Current Visit: Yes (2) Anemia due to acute blood loss SNOMED Code(s): 670663830 ICD Code: D62 - ACUTE POSTHEMORRHAGIC ANEMIA Status: Acute Current Visit : Yes (3) History of pulmonary embolus (PE) SNOMED Code(s): 770450315 ICD Code: Z86.711 - PERSONAL HISTORY OF PULMONARY EMBOLISM Status: Acute Current Visit: Yes (4) Diabetes 1.5, managed as type 2 SNOMED Code(s): 409575685 ICD Code: E13.9 - OTHER SPECIFIED DIABETES MELLITUS WITHOUT COMPLICATIONS Status: Acute Priority: High Current Visit: No (5) Hypertension SNOMED Code(s): 69334631 ICD Code: I10 - ESSENTIAL (PRIMARY) HYPERTENSION Status: Acute Priority: High Current Visit: No - Patient Summary/Data Consults: Consultations 11/15/17 14:15 Consult to Physician [CONS] Stat - Patient Instructions Diet: Usual Diet as Tolerated, Diabetic Diet Activity: As Tolerated Driving: May Drive Today Showering/Bathing: May Shower Notify Provider of: Fever - Discharge Plan Prescriptions/Med Rec: Amoxicillin 1,000 mg PO BID 13 Days #52 tab Clarithromycin [Biaxin] 500 mg PO BID 13 Days #26 tablet Pantoprazole Sodium [Protonix] 40 mg PO BID 15 Days #30 tablet. Sucralfate [Carafate] 1 gm PO TID 30 Days #1 cup Home Medications: Home Meds Insulin Glargine,Hum.Rec.Anlog [Lantus Solostar] 16 unit SQ BEDTIME 12/12/14 [ History] Insulin Glargine,Hum.Rec.Anlog [Lantus Solostar] 31 unit SQ ACBRK 12/12/14 [ History] Lisinopril 40 mg PO DAILY 11/15/17 [History] Metoprolol Tartrate 50 mg PO BID 11/15/17 [History] Simvastatin [Zocor] 0.5 tab PO DAILY 11/15/17 [History] amLODIPine Besylate [Amlodipine Besylate] 5 mg PO DAILY 11/15/17 [History] Albuterol/Ipratropium [DuoNeb 3.0-0.5 MG/3 ML] 3 ml NEB Q4HRRT PRN neb [Rx] Amoxicillin 1,000 mg PO BID 13 Days #52 tab 11/17/17 [Rx] Clarithromycin [Biaxin] 500 mg PO BID 13 Days #26 tablet 11/17/17 [Rx] Pantoprazole Sodium [Protonix] 40 mg PO BID 15 Days #30 tablet. 11/17/17 [Rx] Sucralfate [Carafate] 1 gm PO TID 30 Days #1 cup 11/17/17 [Rx] Patient Handouts: Amoxicillin capsules or tablets, Gastrointestinal Bleeding, Sucralfate tablets, Gastrointestinal Bleeding, [id number], Pantoprazole tablets, Clarithromycin tablets Forms: ED Department Discharge Referrals: Fermin Queen MD [Physician] - (follw-up 1 week from discharge date.) PCP,Unknown [Primary Care Provider] - 11/19/17 ([place] [facility]) - Patient Data Vitals - Most Recent: Last Vital Signs Temp 98.6 F 11/17/17 08:00 Pulse 74 11/17/17 09:18 Resp 16 11/17/17 08:00 BP 128/60 11/17/17 09:18 Pulse Ox 96 11/17/17 08:00 Weight - Most Recent: 2 lb 3.274 oz I&O - Last 24 hours: Intake & Output 11/16/17 11/17/17 11/17/17 22:59 06:59 14:59 Intake Total 1110 900 Output Total 745 600 Balance 365 300 Lab Results - Last 24 hrs: Laboratory Results - last 24 hr 11/16/17 11/16/17 11/17/17 Range/Units 16:04 21:27 05:48 WBC (4.0-11.0) K/uL RBC (4.50-5.90) M/uL Hgb (13.0-17.0) g/dL Hct (38.0-50.0) % MCV (80.0-98.0) fL MCH (27.0-32.0) pg MCHC (31.0-37.0) g/dL RDW Std Deviation (28.0-62.0) fl RDW Coeff of Kristal (11.0-15.0) % Plt Count (150-400) K/uL MPV (7.40-12.00) fL Nucleated RBC % /100WBC Nucleated RBCs # K/uL INR Sodium 143 (136-148) mmol/L Potassium 3.7 (3.5-5.1) mmol/L Chloride 109 H (98-107) mmol/L Carbon Dioxide 27.8 (21.0-32.0) mmol/L BUN 24 H (7.0-18.0) mg/dL Creatinine 1.4 H (0.8-1.3) mg/dL Est Cr Clr Drug Dosing 0.62 mL/min Estimated GFR (MDRD) 49.0 ml/min Glucose 97 (74-106) mg/dL POC Glucose 110 97 (60-110) mg/dL Calcium 8.1 L (8.5-10.1) mg/dL 11/17/17 11/17/17 11/17/17 Range/Units 05:48 05:48 06:57 WBC 6.07 (4.0-11.0) K/uL RBC 3.26 L (4.50-5.90) M/uL Hgb 10.4 L (13.0-17.0) g/dL Hct 31.9 L (38.0-50.0) % MCV 97.9 (80.0-98.0) fL MCH 31.9 (27.0-32.0) pg MCHC 32.6 (31.0-37.0) g/dL RDW Std Deviation 56.2 (28.0-62.0) fl RDW Coeff of Kristal 16 H (11.0-15.0) % Plt Count 151 (150-400) K/uL MPV 10.40 (7.40-12.00) fL Nucleated RBC % 0.0 /100WBC Nucleated RBCs # 0 K/uL INR 1.50 Sodium (136-148) mmol/L Potassium (3.5-5.1) mmol/L Chloride (98-107) mmol/L Carbon Dioxide (21.0-32.0) mmol/L BUN (7.0-18.0) mg/dL Creatinine (0.8-1.3) mg/dL Est Cr Clr Drug Dosing mL/min Estimated GFR (MDRD) ml/min Glucose (74-106) mg/dL POC Glucose 103 (60-110) mg/dL Calcium (8.5-10.1) mg/dL Med Orders - Current: Current Medications Albuterol/Ipratropium (Duoneb 3.0-0.5 Mg/3 Ml) 3 ml NEB Q4HRRT PRN PRN Reason: Shortness Of Breath/wheezing Amlodipine Besylate (Norvasc) 5 mg PO DAILY [facility] Last Admin: 11/17/17 09:18 Dose: 5 mg Amoxicillin (Amoxil) 1,000 mg PO Q12HR [facility] Last Admin: 11/17/17 09:18 Dose: 1,000 mg Clarithromycin (Biaxin) 500 mg PO BID [facility] Last Admin: 11/17/17 09:19 Dose: 500 mg Lactated Ringer's (Ringers, Lactated) 1,000 mls @ 75 mls/hr IV ASDIRECTED [facility] Last Admin: 11/15/17 23:46 Dose: 75 mls/hr Insulin Glargine (Lantus Solostar) 16 units SUBCUT BEDTIME [facility] Last Admin: 11/16/17 21:47 Dose: 16 units Insulin Glargine (Lantus Solostar) 31 units SUBCUT ACBRK [facility] Last Admin: 11/17/17 08:08 Dose: 31 units Lisinopril (Prinivil) 40 mg PO DAILY [facility] Last Admin: 11/17/17 09:18 Dose: 40 mg Metoprolol Tartrate (Lopressor) 50 mg PO BID [facility] Last Admin: 11/17/17 09:18 Dose: 50 mg Pantoprazole Sodium (Protonix Iv) 40 mg IVPUSH Q12H [facility] Last Admin: 11/17/17 09:18 Dose: 40 mg Simvastatin (Zocor) 40 mg PO BEDTIME [facility] Last Admin: 11/16/17 21:37 Dose: 40 mg Sodium Chloride (Saline Flush) 2.5 ml FLUSH ASDIRECTED PRN PRN Reason: Keep Vein Open Sodium Chloride (Saline Flush) 10 ml FLUSH ASDIRECTED PRN PRN Reason: Keep Vein Open Sodium Chloride (Saline Flush) 2.5 ml FLUSH ASDIRECTED PRN PRN Reason: Keep Vein Open Sodium Chloride (Saline Flush) 10 ml FLUSH ASDIRECTED PRN PRN Reason: Keep Vein Open Sodium Chloride (Saline Flush) 2.5 ml FLUSH ASDIRECTED PRN PRN Reason: Keep Vein Open Sucralfate (Carafate) 1 gm PO Q8H [facility] Last Admin: 11/17/17 09:17 Dose: 1 gm Discontinued Medications Sodium Chloride (Normal Saline) 1,000 mls @ 999 mls/hr IV .Bolus ONE Stop: 11/15/17 09:31 Last Infusion: 11/15/17 09:29 Dose: 999 mls/hr Pantoprazole Sodium 80 mg/ (Sodium Chloride) 20 mls @ 80 mls/hr IV ONETIME ONE Stop: 11/15/17 09:04 Last Admin: 11/15/17 09:08 Dose: 80 mls/hr Lactated Ringer's (Ringers, Lactated) 1,000 mls @ 125 mls/hr IV .[facility] [place] Last Admin: 11/15/17 10:46 Dose: 125 mls/hr Insulin Aspart (Novolog) 0 unit SUBCUT Q6H [facility]; Protocol Last Admin: 11/15/17 17:08 Dose: Not Given Iopamidol (Isovue Multipack-370 (76%)) 80 ml IVPUSH ONETIME STA Stop: 11/15/17 10:35 Last Admin: 11/15/17 10:35 Dose: 80 ml Morphine Sulfate (Morphine) 2 mg IVPUSH Q2H PRN PRN Reason: Pain (severe 7-10) Stop: 11/16/17 14:13
== END 2017-11-17 13:30 | disposition home or self-care (01) | DRG 378 ==
LOC: MW.ED 08:14 → MW.MS 11:50
PROVIDERS: ADMIT Internal Medicine; ATTEND Internal Medicine
PROC: 30233N1 Transfusion of Nonautologous Red Blood Cells into Peripheral Vein, Percutaneous Approach (ICD-10-PCS; principal; 2017-11-15)
DX: K25.4 Chronic or unspecified gastric ulcer with hemorrhage (principal); K92.2 Gastrointestinal hemorrhage, unspecified; D62 Acute posthemorrhagic anemia; D50.0 Iron deficiency anemia secondary to blood loss (chronic); E86.0 Dehydration; K80.20 Calculus of gallbladder without cholecystitis without obstruction; N17.9 Acute kidney failure, unspecified; E11.9 Type 2 diabetes mellitus without complications; I10 Essential (primary) hypertension; I25.10 Atherosclerotic heart disease of native coronary artery without angina pectoris; K21.9 Gastro-esophageal reflux disease without esophagitis; Z95.5 Presence of coronary angioplasty implant and graft; Z86.711 Personal history of pulmonary embolism; Z79.899 Other long term (current) drug therapy; Z79.01 Long term (current) use of anticoagulants; Z79.4 Long term (current) use of insulin; Z87.891 Personal history of nicotine dependence
CPT/HCPCS: 36415; 36430; 71045; 71045-26; 74177; 74177-26; 80048; 80053; 81001; 82962; 84484; 85025; 85027; 85379; 85610; 85730; 86677; 86850; 86900; 86901; 86920; 86921; 86922; 93005; 96361; 96365; 99283; 99285-25; A9270-GY; C9113; J1815-GY; J7040; J7120; P9016; P9017; Q9967

== ENCOUNTER 2017-12-13 13:56 | Emergency (ER) | payer MEDICARE, OTHER ==
--- NOTE | 2017-12-13 14:18 | EDM.PDOC ---
ED HPI GENERAL MEDICAL PROBLEM - General Chief Complaint: Respiratory Problem Stated Complaint: PULMONARY Time Seen by Provider: 12/13/17 14:05 Source of Information: Reports: Patient History Limitations: Reports: No Limitations - History of Present Illness INITIAL COMMENTS - FREE TEXT/NARRATIVE: HISTORY AND PHYSICAL: History of present illness: Patient is a 77-year-old male who presents to the emergency room with complaints of dyspnea and fatigue upon exertion. He presented earlier today to the [place] clinic and was suggested to come to our emergency room as he does have a history of pulmonary embolisms. Patient reports he has had 3 previous PEs and is currently on anticoagulant therapy, Coumadin. He states he has had dyspnea and fatigue with ambulation/exertion for the past 2 months. Denies any chest pain, fever, chills, cough, near syncope. Denies any abdominal pain, nausea, vomiting, diarrhea or constipation. Review of systems: As per history of present illness and below otherwise all systems reviewed and negative. Past medical history: As per history of present illness and as reviewed below otherwise noncontributory. Surgical history: As per history of present illness and as reviewed below otherwise noncontributory. Social history: No reported history of drug or alcohol abuse. Family history: As per history of present illness and as reviewed below otherwise noncontributory. Physical exam: General: Well-developed and well-nourished 77-year-old male. Alert and oriented. Nontoxic appearing and in no acute distress. HEENT: Atraumatic, normocephalic, pupils equal and reactive bilaterally, negative for conjunctival pallor or scleral icterus, mucous membranes moist, throat clear, neck supple, nontender, trachea midline. No drooling or trismus noted. No meningeal signs Lungs: Clear to auscultation with slightly diminished posterior bases bilaterally, breath sounds equal bilaterally, chest nontender. Heart: S1S2, regular rate and rhythm without overt murmur Abdomen: Soft, obese, nondistended, nontender. Negative for masses or hepatosplenomegaly. Negative for costovertebral tenderness. Pelvis: Stable nontender. Genitourinary: Deferred. Rectal: Deferred. Skin: Intact, warm, dry. No lesions or rashes noted. Extremities: Atraumatic, negative for cords or calf pain. Neurovascular unremarkable. Neuro: Awake, alert, oriented. Cranial nerves II through XII unremarkable. Cerebellum unremarkable. Motor and sensory unremarkable throughout. Exam nonfocal. Notes: 11/15/2017: Patient had presented to our emergency room with complaints of fatigue shortness of breath and concerns of the PE. At that time he was diagnosed with an upper GI bleed due to some black stools that he had reported. He was treated for an H. pylori infection. CT shows no evidence of a pulmonary emboli, no acute cardiopulmonary disease this information was shared with the patient. We did discuss further evaluation with his primary care for possible pulmonary function testing. He states he would like to be discharged home. I did offer admission, which she declines. Diagnostics: CBC, CMP, PT INR, troponin, EKG, CTA Therapeutics: [] Impression: Dyspnea with exertion Plan: 1. Lab and CT are within normal limits. 2. Please use your albuterol inhaler 1-2 puffs every 4-6 hours as needed. 3. Follow-up with your primary care provider for further evaluation and management over the next 1-2 days. Return to the ED as needed and as discussed. Definitive disposition and diagnosis as appropriate pending reevaluation and review of above. - Related Data Allergies Allergy/AdvReac Type Severity Reaction Status Date / Time No Known Allergies Allergy Verified 12/13/17 14:11 Home Meds: Home Meds Insulin Glargine,Hum.Rec.Anlog [Lantus Solostar] 16 unit SQ BEDTIME 12/12/14 [ History] Insulin Glargine,Hum.Rec.Anlog [Lantus Solostar] 31 unit SQ ACBRK 12/12/14 [ History] Lisinopril 40 mg PO DAILY 11/15/17 [History] Metoprolol Tartrate 50 mg PO BID 11/15/17 [History] Simvastatin [Zocor] 20 mg PO DAILY 11/15/17 [History] amLODIPine Besylate [Amlodipine Besylate] 5 mg PO DAILY 11/15/17 [History] Albuterol/Ipratropium [DuoNeb 3.0-0.5 MG/3 ML] 3 ml NEB Q4HRRT PRN neb [Rx] Pantoprazole Sodium [Protonix] 40 mg PO BID 15 Days #30 tablet. 11/17/17 [Rx] Sucralfate [Carafate] 1 gm PO TID 30 Days #1 cup 11/17/17 [Rx] Past Medical History HEENT History: Reports: Cataract, Hard of Hearing Cardiovascular History: Reports: Hypertension, Stents Respiratory History: Reports: PE Gastrointestinal History: Reports: GERD, GI Bleed Genitourinary History: Reports: BPH Musculoskeletal History: Reports: Arthritis, Back Pain, Chronic Endocrine/Metabolic History: Reports: Diabetes, Type II Hematologic History: Reports: Anemia - Infectious Disease History Infectious Disease History: Reports: Chicken Pox, Measles, Mumps - Past Surgical History HEENT Surgical History: Reports: Cataract Surgery, Tonsillectomy Cardiovascular Surgical History: Reports: Coronary Artery Stent Respiratory Surgical History: Reports: None GI Surgical History: Reports: None Male Surgical History: Reports: None Endocrine Surgical History: Reports: None Musculoskeletal Surgical History: Reports: None Social & Family History - Family History Family Medical History: Noncontributory - Caffeine Use Caffeine Use: Reports: Coffee ED ROS GENERAL - Review of Systems Review Of Systems: ROS reveals no pertinent complaints other than HPI. ED EXAM, GENERAL - Physical Exam Exam: See Below (See dictation) Course - Vital Signs Last Recorded V/S: Last Vital Signs Temp 97.8 F 12/13/17 14:12 Pulse 78 12/13/17 16:24 Resp 18 12/13/17 16:24 BP 145/65 H 12/13/17 16:24 Pulse Ox 94 L 12/13/17 16:24 - Orders/Labs/Meds Orders: Active Orders 24 hr Category Date Time Status EKG Documentation Completion [RC] STAT Care 12/13/17 14:16 Active CTA Chest W WO Contrast [Ang Chest] [CT] Stat Exams 12/13/17 14:10 Taken Labs: Laboratory Tests 12/13/17 12/13/17 12/13/17 Range/Units 14:25 14:25 14:25 WBC 5.36 (4.0-11.0) K/uL RBC 4.10 L (4.50-5.90) M/uL Hgb 13.5 (13.0-17.0) g/dL Hct 41.1 (38.0-50.0) % MCV 100.2 H (80.0-98.0) fL MCH 32.9 H (27.0-32.0) pg MCHC 32.8 (31.0-37.0) g/dL RDW Std Deviation 53.8 (28.0-62.0) fl RDW Coeff of Kristal 15 (11.0-15.0) % Plt Count 169 (150-400) K/uL MPV 10.50 (7.40-12.00) fL Neut % (Auto) 51.5 (48.0-80.0) % Lymph % (Auto) 34.1 (16.0-40.0) % Hall % (Auto) 10.3 (0.0-15.0) % Eos % (Auto) 3.2 (0.0-7.0) % Baso % (Auto) 0.9 (0.0-1.5) % Neut # (Auto) 2.8 (1.4-5.7) K/uL Lymph # (Auto) 1.8 (0.6-2.4) K/uL Hall # (Auto) 0.6 (0.0-0.8) K/uL Eos # (Auto) 0.2 (0.0-0.7) K/uL Baso # (Auto) 0.1 (0.0-0.1) K/uL Nucleated RBC % 0.0 /100WBC Nucleated RBCs # 0 K/uL INR 4.89 Sodium 144 (136-148) mmol/L Potassium 4.9 (3.5-5.1) mmol/L Chloride 108 H (98-107) mmol/L Carbon Dioxide 28.9 (21.0-32.0) mmol/L BUN 26 H (7.0-18.0) mg/dL Creatinine 1.4 H (0.8-1.3) mg/dL Est Cr Clr Drug Dosing 46.32 mL/min Estimated GFR (MDRD) 49.0 ml/min Glucose 108 H (74-106) mg/dL Calcium 9.5 (8.5-10.1) mg/dL Total Bilirubin 0.4 (0.2-1.0) mg/dL AST 30 (15-37) IU/L ALT 32 (14-63) IU/L Alkaline Phosphatase 71 (46-116) U/L Troponin I < 0.050 (0.000-0.056) ng/mL Total Protein 7.4 (6.4-8.2) g/dL Albumin 3.8 (3.4-5.0) g/dL Globulin 3.6 H (2.0-3.5) g/dL Albumin/Globulin Ratio 1.1 L (1.3-2.8) Meds: Medications Discontinued Medications Generic Name Dose Route Start Last Admin Trade Name Jenn PRN Reason Stop Dose Admin Iopamidol 50 ml 12/13/17 15:30 12/13/17 15:43 Isovue Multipack-370 (76%) IVPUSH 12/13/17 15:31 50 ml ONETIME STA Administration Departure - Departure Time of Disposition: 16:51 Disposition: Home, Self-Care 01 Clinical Impression: Dyspnea on exertion - Discharge Information Referrals: PCP,Unknown [Primary Care Provider] - Forms: ED Department Discharge Additional Instructions: The following information is given to patients seen in the emergency department who are being discharged to home. This information is to outline your options for follow-up care. We provide all patients seen in our emergency department with a follow-up referral. The need for follow-up, as well as the timing and circumstances, are variable depending upon the specifics of your emergency department visit. If you don't have a primary care physician on staff, we will provide you with a referral. We always advise you to contact your personal physician following an emergency department visit to inform them of the circumstance of the visit and for follow-up with them and/or the need for any referrals to a consulting specialist. The emergency department will also refer you to a specialist when appropriate. This referral assures that you have the opportunity for follow-up care with a specialist. All of these measure are taken in an effort to provide you with optimal care, which includes your follow-up. Under all circumstances we always encourage you to contact your private physician who remains a resource for coordinating your care. When calling for follow-up care, please make the office aware that this follow-up is from your recent emergency room visit. If for any reason you are refused follow-up, please contact the [facility] Emergency Department at and asked to speak to the emergency department charge nurse. [facility] [address] [place] [id number] [address] and [address] are within normal limits. 2. Please use your albuterol inhaler 1-2 puffs every 4-6 hours as needed. 3. Follow-up with your primary care provider for further evaluation and management over the next 1-2 days. Return to the ED as needed and as discussed. - My Orders Last 24 Hours: My Active Orders 12/13/17 14:10 CTA Chest W WO Contrast [Ang Chest] [CT] Stat 12/13/17 14:16 EKG Documentation Completion [RC] STAT - Assessment/Plan Last 24 Hours: My Active Orders 12/13/17 14:10 CTA Chest W WO Contrast [Ang Chest] [CT] Stat 12/13/17 14:16 EKG Documentation Completion [RC] STAT
[2017-12-13 15:08] LABS: CHLORIDE,CL 108 mmol/L (98-107); SODIUM,NA 144 mmol/L (136-148)
[2017-12-13] MEDS ORDERED: Iopamidol 755 MG/ML 500 ML Multipack Bottle IVPUSH STA (15:30)
--- NOTE | 2017-12-14 14:55 | CT ---
EXAM DATE: 12/13/17 PATIENT'S AGE: 77 Patient: FRANDY EATON Facility: [place], [place] Site . Site : [id number] Study: CT Chest Angio m-12/13/2017 4:19:32 PM Ordering Physician: Doctor Pierre Final Report: INDICATION: chest pain TECHNIQUE: CT chest pulmonary angiogram acquired with IV contrast COMPARISON: None FINDINGS: Cardiovascular structures: Suboptimal bolus timing to evaluate for distal pulmonary emboli. Otherwise, no evidence for pulmonary emboli. Atherosclerotic disease. Heart size is normal. No sign of aneurysm or dissection in the thoracic aorta. Mediastinum and leonor: No mass or adenopathy. Lungs: No focal consolidation, pleural effusion, or pneumothorax. Mild scarring/ atelectasis. Chest wall and axilla: No mass or adenopathy. Bones: Degenerative changes. Upper abdomen: Cholelithiasis. IMPRESSION: 1. Suboptimal bolus timing to evaluate for distal pulmonary emboli. Otherwise, no evidence for pulmonary emboli. 2. No acute cardiopulmonary disease. 3. Cholelithiasis. Dictated by Lamine Espinoza MD @ 12/13/2017 4:35:23 PM Please note that all CT scans at this facility use dose modulation, iterative reconstruction, and/or weight-based dosing when appropriate to reduce radiation dose to as low as reasonably achievable. Dictated by: Lamine Espinoza MD @ 12/13/2017 16:35:42 (Electronic Signature) Report Signed by Proxy. [facility]
== END 2017-12-13 17:00 | disposition home or self-care (01) ==
LOC: MW.ED 13:56
DX: R06.00 Dyspnea, unspecified (principal); I10 Essential (primary) hypertension; E11.9 Type 2 diabetes mellitus without complications; M19.90 Unspecified osteoarthritis, unspecified site; K21.9 Gastro-esophageal reflux disease without esophagitis; Z79.4 Long term (current) use of insulin; Z79.899 Other long term (current) drug therapy
CPT/HCPCS: 36415; 71275; 80053; 84484; 85025; 85610; 93005; 99285; Q9967; 99283

== ENCOUNTER 2019-12-08 13:07 | Emergency (ER) | payer MEDICARE, OTHER ==
[2019-12-08] MEDS ORDERED: Sodium Chloride 0.9% 10 ML Syringe FLUSH PRN ×2 (13:19)
[2019-12-08] MEDS ORDERED: Sodium Chloride 0.9% 2.5 ML Syringe FLUSH PRN (13:19)
--- NOTE | 2019-12-08 13:19 | EDM.PDOC ---
ED HPI GENERAL MEDICAL PROBLEM - General Chief Complaint: Respiratory Problem Stated Complaint: SOB UNSBLE TO WALK Time Seen by Provider: 12/08/19 13:18 Source of Information: Reports: Patient History Limitations: Reports: No Limitations - History of Present Illness INITIAL COMMENTS - FREE TEXT/NARRATIVE: 79-year-old male with a history of GI bleed, HTN, PE on apixaban presents with worsening dyspnea over the last 7 days, associated with EDWARDS. Denies fever, chills, cough, chest pain, palpitation, nausea, vomiting. He does note decreased urine output over the last 4 days. ROS: A 10-point review of systems, other than pertinent positives and negatives as stated per HPI, is otherwise negative PHYSICAL EXAM General: AOx4, GCS = 15, No distress HEENT: dry mucous membrane Neck: supple, no meningismus, no Kernig or Brudzinski Cardiac: S1S2 RRR Respiratory: CTAB, no rales Abdomen: Soft, nontender, no rebound or guarding, nondistended, no pulsatile mass. Back: nontender Musculoskeletal: NVI distally, no deformity, +1 bilateral lower extremity edema Neuro: No focal deficits. MEDICAL DECISION MAKING: I reviewed the patients past medical records, lab and radiographic findings. I discussed the case with family members. My differential diagnosis included: CHF exacerbation, nephrogenic pulmonary edema, arrhythmia, cardiogenic edema. Patient's BNP is unremarkable, chest x-ray did not reveal any signs of infection or fluid overload, CT angios did not reveal pulmonary embolism. He was not hypoxic after ambulation. He denies any chest pain, his troponin and EKG were nonischemic, I do not suspect underlying ischemic cardiogenic event. I instructed him to continue taking his apixaban. His work-up here was unremarkable, I do not suspect need for inpatient hospitalization. I believe he is stable for outpatient follow-up for further assessment, we did establish an appointment for him this Sunday at the clinic. - Related Data Allergies Allergy/AdvReac Type Severity Reaction Status Date / Time No Known Allergies Allergy Verified 12/08/19 13:16 Home Meds: Home Meds Apixaban [Eliquis] 2.5 mg PO BID 12/08/19 [History] Insulin Glarg,Human.Rec.Analog [Lantus] 1 dose INJECT ASDIRECTED 12/08/19 [ History] Metoprolol Succinate 50 mg PO BID 12/08/19 [History] amLODIPine [Norvasc] 5 mg PO DAILY 12/08/19 [History] busPIRone [Buspar] 1.5 tab PO BID 12/08/19 [History] lisinopriL [Lisinopril] 40 mg PO DAILY 12/08/19 [History] Past Medical History HEENT History: Reports: Cataract, Hard of Hearing Cardiovascular History: Reports: Hypertension, Stents Respiratory History: Reports: PE Gastrointestinal History: Reports: GERD, GI Bleed Genitourinary History: Reports: BPH Musculoskeletal History: Reports: Arthritis, Back Pain, Chronic Neurological History: Reports: None Psychiatric History: Reports: None Endocrine/Metabolic History: Reports: Diabetes, Type II Hematologic History: Reports: Anemia Immunologic History: Reports: None Oncologic (Cancer) History: Reports: None Dermatologic History: Reports: None - Infectious Disease History Infectious Disease History: Reports: Chicken Pox, Measles, Mumps - Past Surgical History HEENT Surgical History: Reports: Cataract Surgery, Tonsillectomy Cardiovascular Surgical History: Reports: Coronary Artery Stent Respiratory Surgical History: Reports: None GI Surgical History: Reports: None Male Surgical History: Reports: None Endocrine Surgical History: Reports: None Musculoskeletal Surgical History: Reports: None Social & Family History - Family History Family Medical History: Noncontributory - Caffeine Use Caffeine Use: Reports: Coffee ED ROS GENERAL - Review of Systems Review Of Systems: See Below (see dictation) ED EXAM, GENERAL - Physical Exam Exam: See Below (see dictation) General Appearance: Alert, No Apparent Distress EKG INTERPRETATION EKG Interpretation Comments: 71 Bpm, NSR, normal QRS interval, no STEMI. EKG and rhythm strip interpreted by me at 1311 Course - Vital Signs Last Recorded V/S: Last Vital Signs Temp 96.3 F L 12/08/19 13:14 Pulse 74 12/08/19 15:26 Resp 17 12/08/19 15:26 BP 166/87 H 12/08/19 15:26 Pulse Ox 95 12/08/19 15:26 - Orders/Labs/Meds Orders: Active Orders 24 hr Category Date Time Status Cardiac Monitoring [RC] . DIRECTED Care 12/08/19 13:19 Active EKG Documentation Completion [RC] STAT Care 12/08/19 13:19 Active Pulse Oximetry [RC] ASDIRECTED Care 12/08/19 13:19 Active Sodium Chloride 0.9% [Saline Flush] Med 12/08/19 13:19 Active 10 ml FLUSH ASDIRECTED PRN Sodium Chloride 0.9% [Saline Flush] Med 12/08/19 13:19 Active 10 ml FLUSH ASDIRECTED PRN Sodium Chloride 0.9% [Saline Flush] Med 12/08/19 13:19 Active 2.5 ml FLUSH ASDIRECTED PRN Saline Lock Insert [OM.PC] Stat Oth 12/08/19 13:19 Ordered Medication Orders Sodium Chloride (Saline Flush) 10 ml FLUSH ASDIRECTED PRN PRN Reason: Keep Vein Open Sodium Chloride (Saline Flush) 10 ml FLUSH ASDIRECTED PRN PRN Reason: Keep Vein Open Sodium Chloride (Saline Flush) 2.5 ml FLUSH ASDIRECTED PRN PRN Reason: Keep Vein Open Labs: Laboratory Tests 12/08/19 12/08/19 12/08/19 Range/Units 13:29 13:29 13:29 WBC 7.63 (4.0-11.0) K/uL RBC 4.84 (4.50-5.90) M/uL Hgb 15.8 (13.0-17.0) g/dL Hct 47.8 (38.0-50.0) % MCV 98.8 H (80.0-98.0) fL MCH 32.6 H (27.0-32.0) pg MCHC 33.1 (31.0-37.0) g/dL RDW Std Deviation 48.5 (28.0-62.0) fl RDW Coeff of Kristal 13 (11.0-15.0) % Plt Count 162 (150-400) K/uL MPV 10.40 (7.40-12.00) fL Neut % (Auto) 59.9 (48.0-80.0) % Lymph % (Auto) 28.0 (16.0-40.0) % Burt % (Auto) 9.8 (0.0-15.0) % Eos % (Auto) 1.6 (0.0-7.0) % Baso % (Auto) 0.7 (0.0-1.5) % Neut # (Auto) 4.6 (1.4-5.7) K/uL Lymph # (Auto) 2.1 (0.6-2.4) K/uL Burt # (Auto) 0.8 (0.0-0.8) K/uL Eos # (Auto) 0.1 (0.0-0.7) K/uL Baso # (Auto) 0.1 (0.0-0.1) K/uL Nucleated RBC % 0.0 /100WBC Nucleated RBCs # 0 K/uL INR 1.00 Sodium 140 (136-148) mmol/L Potassium 4.6 (3.5-5.1) mmol/L Chloride 104 (98-107) mmol/L Carbon Dioxide 28.7 (21.0-32.0) mmol/L BUN 19 H (7.0-18.0) mg/dL Creatinine 1.3 (0.8-1.3) mg/dL Est Cr Clr Drug Dosing 48.27 mL/min Estimated GFR (MDRD) 53.1 ml/min Glucose 152 H (74-106) mg/dL Calcium 8.7 (8.5-10.1) mg/dL Total Bilirubin 0.6 (0.2-1.0) mg/dL AST 28 (15-37) IU/L ALT 38 (14-63) IU/L Alkaline Phosphatase 73 (46-116) U/L Troponin I < 0.050 (0.000-0.056) ng/mL B-Natriuretic Peptide (<100) PG/ML Total Protein 7.1 (6.4-8.2) g/dL Albumin 3.3 L (3.4-5.0) g/dL Globulin 3.8 (2.6-4.0) g/dL Albumin/Globulin Ratio 0.9 (0.9-1.6) 12/08/19 Range/Units 13:29 WBC (4.0-11.0) K/uL RBC (4.50-5.90) M/uL Hgb (13.0-17.0) g/dL Hct (38.0-50.0) % MCV (80.0-98.0) fL MCH (27.0-32.0) pg MCHC (31.0-37.0) g/dL RDW Std Deviation (28.0-62.0) fl RDW Coeff of Kristal (11.0-15.0) % Plt Count (150-400) K/uL MPV (7.40-12.00) fL Neut % (Auto) (48.0-80.0) % Lymph % (Auto) (16.0-40.0) % Burt % (Auto) (0.0-15.0) % Eos % (Auto) (0.0-7.0) % Baso % (Auto) (0.0-1.5) % Neut # (Auto) (1.4-5.7) K/uL Lymph # (Auto) (0.6-2.4) K/uL Burt # (Auto) (0.0-0.8) K/uL Eos # (Auto) (0.0-0.7) K/uL Baso # (Auto) (0.0-0.1) K/uL Nucleated RBC % /100WBC Nucleated RBCs # K/uL INR Sodium (136-148) mmol/L Potassium (3.5-5.1) mmol/L Chloride (98-107) mmol/L Carbon Dioxide (21.0-32.0) mmol/L BUN (7.0-18.0) mg/dL Creatinine (0.8-1.3) mg/dL Est Cr Clr Drug Dosing mL/min Estimated GFR (MDRD) ml/min Glucose (74-106) mg/dL Calcium (8.5-10.1) mg/dL Total Bilirubin (0.2-1.0) mg/dL AST (15-37) IU/L ALT (14-63) IU/L Alkaline Phosphatase (46-116) U/L Troponin I (0.000-0.056) ng/mL B-Natriuretic Peptide 82 (<100) PG/ML Total Protein (6.4-8.2) g/dL Albumin (3.4-5.0) g/dL Globulin (2.6-4.0) g/dL Albumin/Globulin Ratio (0.9-1.6) Meds: Medications Generic Name Dose Route Start Last Admin Trade Name Freq PRN Reason Stop Dose Admin Sodium Chloride 10 ml 12/08/19 13:19 Saline Flush FLUSH ASDIRECTED PRN Keep Vein Open Sodium Chloride 10 ml 12/08/19 13:19 Saline Flush FLUSH ASDIRECTED PRN Keep Vein Open Sodium Chloride 2.5 ml 12/08/19 13:19 Saline Flush FLUSH ASDIRECTED PRN Keep Vein Open Discontinued Medications Generic Name Dose Route Start Last Admin Trade Name Freq PRN Reason Stop Dose Admin Iopamidol 75 ml 12/08/19 14:59 12/08/19 14:59 Isovue Multipack-370 (76%) IVPUSH 12/08/19 15:00 75 ml ONETIME ONE Administration - Re-Assessments/Exams Free Text/Narrative Re-Assessment/Exam: 12/08/19 16:41 After prolonged observation period in the ER, the patient is stable for discharge. I performed a repeat examination and the patient has not demonstrated any new abnormal findings. Patient exhibits normal vital signs and has exhibited a normal gait. I ambulated the patient and his sats was 95% on room air. I advised the patient to return to the ER for reevaluation if symptoms worsened, and to follow up with the clinic, which has been made for this Sunday.. Departure - Departure Time of Disposition: 16:51 Disposition: Home, Self-Care 01 Condition: Good Clinical Impression: Dyspnea - Discharge Information *PRESCRIPTION DRUG MONITORING PROGRAM REVIEWED*: Not Applicable *COPY OF PRESCRIPTION DRUG MONITORING REPORT IN PATIENT TRUMAN: Not Applicable Referrals: PCP,Not In Area [Primary Care Provider] - Forms: ED Department Discharge Additional Instructions: The following information is given to patients seen in the emergency department who are being discharged to home. This information is to outline your options for follow-up care. We provide all patients seen in our emergency department with a follow-up referral. The need for follow-up, as well as the timing and circumstances, are variable depending upon the specifics of your emergency department visit. If you don't have a primary care physician on staff, we will provide you with a referral. We always advise you to contact your personal physician following an emergency department visit to inform them of the circumstance of the visit and for follow-up with them and/or the need for any referrals to a consulting specialist. The emergency department will also refer you to a specialist when appropriate. This referral assures that you have the opportunity for follow-up care with a specialist. All of these measure are taken in an effort to provide you with optimal care, which includes your follow-up. Under all circumstances we always encourage you to contact your private physician who remains a resource for coordinating your care. When calling for follow-up care, please make the office aware that this follow-up is from your recent emergency room visit. If for any reason you are refused follow-up, please contact the [facility] Emergency Department at and asked to speak to the emergency department charge nurse. An appointment has been made for you this Sunday at the clinic. [facility] [address] [place] [address] Sepsis Event Note - Evaluation Sepsis Screening Result: No Definite Risk - Focused Exam Vital Signs: Vital Signs Temp Pulse Resp BP Pulse Ox 12/08/19 15:26 74 17 166/87 H 95 12/08/19 13:14 96.3 F L 69 19 166/86 H 97 Date Exam was Performed: 12/08/19 Time Exam was Performed: 16:41 - My Orders Last 24 Hours: My Active Orders 12/08/19 13:19 Cardiac Monitoring [RC] . DIRECTED EKG Documentation Completion [RC] STAT Pulse Oximetry [RC] ASDIRECTED Sodium Chloride 0.9% [Saline Flush] 10 ml FLUSH ASDIRECTED PRN Sodium Chloride 0.9% [Saline Flush] 10 ml FLUSH ASDIRECTED PRN Sodium Chloride 0.9% [Saline Flush] 2.5 ml FLUSH ASDIRECTED PRN Saline Lock Insert [OM.PC] Stat - Assessment/Plan Last 24 Hours: My Active Orders 12/08/19 13:19 Cardiac Monitoring [RC] . DIRECTED EKG Documentation Completion [RC] STAT Pulse Oximetry [RC] ASDIRECTED Sodium Chloride 0.9% [Saline Flush] 10 ml FLUSH ASDIRECTED PRN Sodium Chloride 0.9% [Saline Flush] 10 ml FLUSH ASDIRECTED PRN Sodium Chloride 0.9% [Saline Flush] 2.5 ml FLUSH ASDIRECTED PRN Saline Lock Insert [OM.PC] Stat
[2019-12-08 14:02] LABS: BLOOD UREA NITROGEN,BUN 19 mg/dL (7.0-18.0); CARBON DIOXIDE,CO2 28.7 mmol/L (21.0-32.0); CHLORIDE,CL 104 mmol/L (98-107); GLUCOSE RANDOM 152 mg/dL (74-106); POTASSIUM,K 4.6 mmol/L (3.5-5.1); SODIUM,NA 140 mmol/L (136-148)
--- NOTE | 2019-12-08 14:45 | CR ---
Chest: Portable view of the chest was obtained. Comparison: Prior chest x-ray of 11/15/17. Right hemidiaphragm is elevated which appears chronic. No parenchymal process is seen within either lung. Heart size and mediastinum are normal. Bony structures are grossly intact. Impression: 1. Nothing acute is seen on portable chest x-ray. Diagnostic code #2 This report was dictated in MDT
[2019-12-08] MEDS ORDERED: Iopamidol 755 MG/ML 500 ML Multipack Bottle IVPUSH ONE (14:59)
--- NOTE | 2019-12-08 15:34 | CT ---
CT chest Technique: Multiple axial sections through the chest were obtained. Intravenous contrast was utilized. Study performed as a ureteral stone protocol. Comparison: Prior chest CT study of 12/13/17. Findings: No filling defects of pulmonary embolism are seen. Aorta shows no aneurysm. Mediastinum and hilar region show no adenopathy. Coronary artery calcificationis noted. Several calcified gallstones are seen within the gallbladder. No other discrete abnormality is appreciated within the visualized upper abdominal structures. Lungs show no acute parenchymal change. Bone window settings were reviewed which shows mild scattered endplate spurring within the spine. Impression: 1. No filling defects or pulmonary embolism. 2. Other findings which are believed to be nonacute as noted above. Diagnostic code #3 This report was dictated in MDT
== END 2019-12-08 17:06 | disposition home or self-care (01) ==
LOC: MW.ED 13:07
DX: R06.00 Dyspnea, unspecified (principal); I10 Essential (primary) hypertension; E11.9 Type 2 diabetes mellitus without complications; Z79.4 Long term (current) use of insulin; Z86.711 Personal history of pulmonary embolism; Z79.01 Long term (current) use of anticoagulants; Z95.5 Presence of coronary angioplasty implant and graft
CPT/HCPCS: 36415; 71045; 71275; 80053; 83880; 84484; 85025; 85610; 93005; 99285; Q9967; 99284